=== PATIENT | female | born 1955 | race African-American/Black ===

== ENCOUNTER 2016-07-25 13:52 | Inpatient (IN) | payer MEDICAID, OTHER ==
[~2016-07-25] VITALS: Ht 170.2 cm; Wt 88.5 kg
[~2016-07-25 13:52] MED LIST: LASIX40 MG ORAL
--- NOTE | 2016-07-25 15:10 | Emergency Room Report ---
History of Present Illness General Chief Complaint: Pain Source: Patient (RUDOLPH DE LA CRUZ) Present Illness HPI 61 y/o female c/o left leg pain x 2 days. States her left upper thigh / leg is swollen and pain is located in left calf. Denies any trauma. States she tried walking on it and pain got worse. Pain is constant and has no relieving factors. States she has hx of DVT in the past and would like to r/o DVT today. Denies taking anticoagulation medication or hx of heart valve or a. fib. Denies any current n/v/f/c/d, abd pain, back pain, neck pain, photophobia, phonophobia, CP, SOB or headache. (RUDOLPH DE LA CRUZ) Allergies: Coded Allergies: No Known Allergies (Unverified , 02/24/14) Patient History Past Medical History: see triage record Pertinent Family History: none Immunizations: UTD Reviewed Nursing Documentation: PMH: Agreed, PSxH: Agreed (RUDOLPH DE LA CRUZ) Nursing Documentation-PMH Hx Cardiac Problems: Yes - Cardiac Failure Hx Hypertension: Yes Hx Cancer: No Hx Gastrointestinal Problems: No Hx Neurological Problems: No (RUDOLPH DE LA CRUZ) Review of Systems All Other Systems: negative except mentioned in HPI (RUDOLPH DE LA CRUZ) Physical Exam Vital Signs Date Time Temp Pulse Resp B/P Pulse Ox O2 Delivery O2 Flow Rate FiO2 07/25/16 13:57 99.0 125 20 158/92 97 Room Air Sp02 EP Interpretation: reviewed, normal General Appearance: no apparent distress, alert, GCS 15, non-toxic Head: normocephalic, atraumatic Respiratory: chest non-tender, lungs clear, normal breath sounds, speaking full sentences Cardiovascular #1: no edema, no murmur, no rub, tachycardia Cardiovascular #2: 2+ dorsalis pedis (R), 2+ dorsalis pedis (L) Musculoskeletal: back normal, gait/station normal, normal range of motion, non- tender, calf tenderness, swelling - Left thigh and ankle swollen Neurologic: alert, oriented x3, responsive, motor strength/tone normal, sensory intact, speech normal Psychiatric: judgement/insight normal, memory normal, mood/affect normal, no suicidal/homicidal ideation Skin: normal color, no rash, warm/dry, well hydrated (RUDOLPH DE LA CRUZ P.A.) Medical Decision Making PA Attestation Dr. Mirza is my supervising physician with whom patient management has been discussed with. (RUDOLPH DE LA CRUZ P.A.) Diagnostic Impression: Primary Impression: DVT (deep venous thrombosis) Qualified Codes: I82.492 - Acute embolism and thrombosis of other specified deep vein of left lower extremity ER Course Pt. presents to the ED c/o left leg pain Ddx considered but are not limited to DVT, contusion, fracture, venous insufficiency Vital signs: are WNL, pt. is afebrile H&PE are most consistent with DVT ORDERS: Venous duplex, Admission, PT/INR, PTT, CBC, CMP ED INTERVENTIONS: Lovonox Patient admitted to Dr. Granger. (RUDOLPH DE LA CRUZ P.A.) ER Course I evaluated this patient in the ED at [facility] with my advanced practice provider (Physician Material Stress Tester) colleague, who practices under my general supervision. My impressions concur with the advanced practice provider in regards to their obtained history of present illness, physical exam, general management, diagnosis, and disposition. In particular, I agree with PA-obtained interpretation of imaging, rhythm strip. For the evening and overnight shifts, we do not have the benefit of an in-house Radiologist to review xrays so our interpretation may be limited. Patients are to be discharged only with normal vital signs (or if we discussed a particular exception), a plan for follow-up care, and understand to return to the ED for worsening symptoms. Please see midlevel healthcare providers note for further details. (MARTIN MIRZA M.D.) EKG Diagnostic Results Rate: tachycardiac ST Segments: no acute changes (RUDOLPH DE LA CRUZ P.A.) Rhythm Strip Diag. Results Rhythm: no ectopy, other - Sinus Tach. Non specific ST changes (RUDOLPH DE LA CRUZ P.A.) CT/MRI/US Diagnostic Results CT/MRI/US Diagnostic Results : Imaging Test Ordered: Venous Duplex LLE Impression Large DVT of the left leg from proximal to distal (RUDOLPH DE LA CRUZ P.A.) Last Vital Signs Date Time Temp Pulse Resp B/P Pulse Ox O2 Delivery O2 Flow Rate FiO2 07/25/16 13:57 99.0 125 20 158/92 97 Room Air Status: unchanged (RUDOLPH DE LA CRUZ P.A.) Disposition: ADMITTED INPATIENT Admit Decision Time: 18:00 (RUDOLPH DE LA CRUZ.Lisha) Condition: Stable Signed Out To: Dr. Granger admission at 1800 (RUDOLPH DE LA CRUZ P.ANeville) RUDOLPH DE LA CRUZ Jul 25, 2016 15:10 MARTIN MIRZA M.D. Jul 28, 2016 14:18
[2016-07-25 15:31] VITALS: BP 153/94
[2016-07-25 16:40] LABS: BASOPHILS % (AUTO) 1.5 % (0.0-2.0); LYMPHOCYTES % (AUTO) 6.1 % (20.0-45.0); MEAN CORPUSCULAR HEMOGLOBIN 25.3 PG (27.0-31.0); MEAN CORPUSCULAR VOLUME 82 FL (80-99); MEAN PLATELET VOLUME 7.1 FL (6.5-10.1); MONOCYTES % (AUTO) 9.8 % (1.0-10.0); NEUTROPHILS % (AUTO) 82.6 % (45.0-75.0); PLATELET COUNT 247 K/UL (150-450); RED BLOOD COUNT 4.53 M/UL (4.20-5.40); RED CELL DISTRIBUTION WIDTH 14.6 % (11.6-14.8); WHITE BLOOD COUNT 13.7 K/UL (4.8-10.8)
[2016-07-25 16:51] LABS: INR 1.2 (0.9-1.1)
[2016-07-25 16:58] LABS: ALANINE AMINOTRANSFERASE 15 U/L (3-33); ALBUMIN/GLOBULIN RATIO 1.1 (1.0-2.7); ANION GAP 19 (5-15); ASPARTATE AMINO TRANSFERASE 18 U/L (5-40); CALCIUM 9.9 mg/dL (8.6-10.2); CARBON DIOXIDE 22 mEQ/L (20-30); CHLORIDE 95 mEQ/L (98-107); CREATININE 1.1 mg/dL (0.5-0.9); GLOMERULAR FILTRATION RATE > 60 mL/min (>60); HEMOLYSIS 0; POTASSIUM 4.2 mEQ/L (3.4-4.9); SODIUM 136 mEQ/L (135-145); TOTAL PROTEIN 7.4 g/dL (6.6-8.7)
[2016-07-25 17:56] VITALS: BP 105/94
[2016-07-25] MEDS ORDERED: Zolpidem 5mg tab ORAL PRN (20:00)
[2016-07-25] MEDS ORDERED: Morphine Sulfate 2mg/ml Inj IVP PRN (20:00)
[2016-07-25] MEDS ORDERED: LORazepam Inj 2mg/ml 1ml IV PRN (20:00)
[2016-07-25] MEDS ORDERED: Miralax 17gm pkt ORAL PRN (20:00)
[2016-07-25] MEDS ORDERED: Enoxaparin 100mg Inj SUBQ SCH (21:00)
[2016-07-25 21:43] VITALS: BP 130/77
[2016-07-25 23:52] VITALS: BP 128/73
[2016-07-26 04:00] VITALS: BP 131/87
[2016-07-26] MEDS: Heparin 25,000u/D5W 500ml 500 ML IV SCH ×3 (05:23→20:46)
[2016-07-26 06:57] LABS: ALBUMIN/GLOBULIN RATIO 1.1 (1.0-2.7); CALCIUM 9.7 mg/dL (8.6-10.2); CHOLESTEROL/HDL RATIO 2.6 (3.3-4.4); CREATININE 1.6 mg/dL (0.5-0.9); POTASSIUM 4.6 mEQ/L (3.4-4.9)
[2016-07-26 07:15] LABS: BASOPHILS % (AUTO) 0.5 % (0.0-2.0); EOSINOPHILS % (AUTO) 0.3 % (0.0-3.0); LYMPHOCYTES % (AUTO) 11.1 % (20.0-45.0); MEAN CORPUSCULAR HEMOGLOBIN 25.4 PG (27.0-31.0); MEAN CORPUSCULAR HGB CONC 31.4 G/DL (32.0-36.0); MEAN CORPUSCULAR VOLUME 81 FL (80-99); MEAN PLATELET VOLUME 8.2 FL (6.5-10.1); MONOCYTES % (AUTO) 12.2 % (1.0-10.0); NEUTROPHILS % (AUTO) 75.9 % (45.0-75.0); PLATELET COUNT 299 K/UL (150-450); RED BLOOD COUNT 4.39 M/UL (4.20-5.40); RED CELL DISTRIBUTION WIDTH 14.4 % (11.6-14.8); WHITE BLOOD COUNT 12.7 K/UL (4.8-10.8)
[2016-07-26 08:35] VITALS: BP 106/63
--- NOTE | 2016-07-26 10:24 | Diagnostic Imaging Report ---
APPROVED REPORT CPT Code: 92884 Present Symptoms LEFT LEG: Venous imaging reveals acute thrombus in the left common femoral, superficial femoral, popliteal and tibial segments. Greater saphenous vein also within normal limits. ER Doctor was notified of abnormal results at 1540 hours.
[2016-07-26 12:08] VITALS: BP 129/82
[2016-07-26] MEDS ORDERED: Heparin 5000 units/ml inj IV ONE ×2 (13:00→20:45)
--- NOTE | 2016-07-26 15:33 | History and Physical ---
History of Present Illness General Date patient seen: Jul 26, 2016 Reason for Hospitalization: Pain Present Illness HPI 61 year old female with hx of DVT presented to ER with CC of left leg pain x 2 days. States her left upper thigh / leg is swollen and pain is located in left calf. She had a venous doppler in ER showing that she has acute dvt Allergies: Coded Allergies: No Known Allergies (Unverified , 02/24/14) Medication History Scheduled Furosemide* (Lasix*), 40 MG ORAL BID, (Reported) Patient History Healthcare decision maker Resuscitation status Full Code Advanced Directive on File Past Medical/Surgical History Past Medical/Surgical History: (1) DVT (deep venous thrombosis) (2) Diabetes mellitus, new onset (3) GERD (gastroesophageal reflux disease) Review of Systems Hematologic/Lymphatic: Reports: no symptoms All Other Systems: negative except mentioned in HPI Physical Exam General Appearance: WD/WN, no apparent distress Lines, tubes and drains: peripheral HEENT: normocephalic, atraumatic Neck: non-tender, normal alignment Respiratory/Chest: chest wall non-tender, lungs clear Cardiovascular/Chest: normal peripheral pulses, normal rate Abdomen: normal bowel sounds, non tender Extremities: normal range of motion, non-tender 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: 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 political history II-XII grossly normal, no motor/sensory deficits Lymphatic: anterior cervical Last 24 Hour Vital Signs Date Time Temp Pulse Resp B/P Pulse Ox O2 Delivery O2 Flow Rate FiO2 07/26/16 12:08 98.1 103 20 129/82 98 Room Air 07/26/16 08:35 98.4 100 20 106/63 98 Room Air 07/26/16 04:00 98.2 105 18 131/87 94 Room Air 07/25/16 23:52 97.6 96 18 128/73 98 Room Air 07/25/16 21:43 97.7 95 16 130/77 98 Room Air 07/25/16 21:02 98.9 92 17 105/94 98 Room Air 07/25/16 17:56 98.9 92 17 105/94 98 Room Air 07/25/16 15:31 98.9 113 17 153/94 98 Room Air Intake and Output 07/25/16 07/26/16 19:00 07:00 Intake Total 31.842 ml Balance 31.842 ml IV Total 31.842 ml # Voids 1 # Bowel Movements 2 Laboratory Tests Test 07/25/16 16:34 07/26/16 05:10 07/26/16 11:30 White Blood Count 13.7 K/UL (4.8-10.8) H 12.7 K/UL (4.8-10.8) H Red Blood Count 4.53 M/UL (4.20-5.40) 4.39 M/UL (4.20-5.40) Hemoglobin 11.5 G/DL (12.0-16.0) L 11.2 G/DL (12.0-16.0) L Hematocrit 36.9 % (37.0-47.0) L 35.5 % (37.0-47.0) L Mean Corpuscular Volume 82 FL (80-99) 81 FL (80-99) Mean Corpuscular Hemoglobin 25.3 PG (27.0-31.0) L 25.4 PG (27.0-31.0) L Mean Corpuscular Hemoglobin Concent 31.0 G/DL (32.0-36.0) L 31.4 G/DL (32.0-36.0) L Red Cell Distribution Width 14.6 % (11.6-14.8) 14.4 % (11.6-14.8) Platelet Count 247 K/UL (150-450) 299 K/UL (150-450) Mean Platelet Volume 7.1 FL (6.5-10.1) 8.2 FL (6.5-10.1) Neutrophils (%) (Auto) 82.6 % (45.0-75.0) H 75.9 % (45.0-75.0) H Lymphocytes (%) (Auto) 6.1 % (20.0-45.0) L 11.1 % (20.0-45.0) L Monocytes (%) (Auto) 9.8 % (1.0-10.0) 12.2 % (1.0-10.0) H Eosinophils (%) (Auto) 0.0 % (0.0-3.0) 0.3 % (0.0-3.0) Basophils (%) (Auto) 1.5 % (0.0-2.0) 0.5 % (0.0-2.0) Prothrombin Time 12.0 SEC (9.30-11.50) H Prothromb Time International Ratio 1.2 (0.9-1.1) H Activated Partial Thromboplast Time 28 SEC (23-33) 31 SEC (23-33) Sodium Level 136 mEQ/L (135-145) 136 mEQ/L (135-145) Potassium Level 4.2 mEQ/L (3.4-4.9) 4.6 mEQ/L (3.4-4.9) Chloride Level 95 mEQ/L (98-107) L 93 mEQ/L (98-107) L Carbon Dioxide Level 22 mEQ/L (20-30) 24 mEQ/L (20-30) Anion Gap 19 (5-15) H 19 (5-15) H Blood Urea Nitrogen 9 mg/dL (7-23) 16 mg/dL (7-23) Creatinine 1.1 mg/dL (0.5-0.9) H 1.6 mg/dL (0.5-0.9) H Estimat Glomerular Filtration Rate > 60 mL/min (>60) 40.0 mL/min (>60) Glucose Level 175 mg/dL (74-106) H 132 mg/dL (74-106) H Calcium Level 9.9 mg/dL (8.6-10.2) 9.7 mg/dL (8.6-10.2) Total Bilirubin 0.8 mg/dL (0.0-1.2) 0.5 mg/dL (0.0-1.2) Aspartate Amino Transf (AST/SGOT) 18 U/L (5-40) 17 U/L (5-40) Alanine Aminotransferase (ALT/SGPT) 15 U/L (3-33) 14 U/L (3-33) Alkaline Phosphatase 69 U/L (35-104) 68 U/L (35-104) Total Protein 7.4 g/dL (6.6-8.7) 7.0 g/dL (6.6-8.7) Albumin 4.0 g/dL (3.5-5.2) 3.7 g/dL (3.5-5.2) Globulin 3.4 g/dL 3.3 g/dL Albumin/Globulin Ratio 1.1 (1.0-2.7) 1.1 (1.0-2.7) Triglycerides Level 93 mg/dL (< 150) Cholesterol Level 123 mg/dL (< 200) LDL Cholesterol 56 mg/dL (60-99) L HDL Cholesterol 48 mg/dL (> 60) Cholesterol/HDL Ratio 2.6 (3.3-4.4) L Height (Feet): 5 Height (Inches): 7.00 Weight (Pounds): 195 Medications Current Medications Medications (Trade) Dose Ordered Sig/Day Route PRN Reason Start Time Stop Time Status Last Admin Dose Admin Acetaminophen (Tylenol) 650 mg Q4H PRN ORAL fever 07/25/16 20:00 08/24/16 19:59 Al Hydroxide/Mg Hydroxide (Mylanta II) 30 ml Q6H PRN ORAL dyspepsia 07/25/16 20:00 08/24/16 19:59 Dextrose STAT PRN IV Hypoglycemia 07/25/16 20:00 08/24/16 19:59 Heparin Sodium/ Dextrose (Heparin) 500 ml @ 38.918 mls/ hr adjust per protocol IV 07/26/16 05:30 08/25/16 05:29 07/26/16 13:23 Lorazepam (Ativan 2mg/ml 1ml) 0.5 mg Q4H PRN IV For Anxiety 07/25/16 20:00 08/01/16 19:59 Morphine Sulfate (Morphine Sulfate) 1 mg Q4H PRN IVP For Pain 4-07/25/16 20:00 08/01/16 19:59 Ondansetron HCl (Zofran) 4 mg Q6H PRN IVP Nausea & Vomiting 07/25/16 20:00 08/24/16 19:59 Polyethylene Glycol (Miralax) 17 gm HSPRN PRN ORAL Constipation 07/25/16 20:00 08/24/16 19:59 Zolpidem Tartrate (Ambien) 5 mg HSPRN PRN ORAL Insomnia 07/25/16 20:00 08/24/16 19:59 Assessment/Plan Problem List: (1) Diabetes mellitus ICD Codes: E11.9 - Type 2 diabetes mellitus without complications SNOMED: 17755445 (2) DVT (deep venous thrombosis) ICD Codes: I82.409 - Acute embolism and thrombosis of unspecified deep veins of unspecified lower extremity SNOMED: 490736612 Qualifiers: Qualified Codes: I82.492 - Acute embolism and thrombosis of other specified deep vein of left lower extremity Assessment/Plan heparin IV coumadin hem evaluation DANYA RIVERA Jul 26, 2016 15:33
[2016-07-26 16:00] VITALS: BP 118/68
--- NOTE | 2016-07-26 17:19 | Consultation ---
Consult Note Consult Note Hematology Consultation Note Requesting MD: Rosetta Cabrera Reason for consultation: DVT DOS: 07/26/16 ID: 61 y/o female with a hx of left ventricle thrombus, as well as respiratory failure, has been extubated back in 2013, at this time presents to [facility] c/o left leg pain x 2 days. States her left upper thigh / leg is swollen and pain is located in left calf. Denies any trauma. States she tried walking on it and pain got worse. Pain is constant and has no relieving factors. States she has hx of DVT in the past a duplex showed a extensive dvt of the left lower extremity, given her Age >50 generally withhold hypercoag w/ u. She denies taking anticoagulation medication or hx of heart valve or a. fib. Denies any current n/v/f/c/d, abd pain, back pain, neck pain, photophobia, phonophobia, CP, SOB or headache. PMHX: HTN, CHF, as noted above Allergies: No Known Allergies (Unverified , 02/24/14) ROS: negative except as noted above PE: Vital Signs Date Time Temp Pulse Resp B/P Pulse Ox O2 Delivery O2 Flow Rate FiO2 07/26/16 13:57 99.0 125 20 158/92 97 Room Air General Appearance: NAD, A+O x3 Head: normocephalic, atraumatic Respiratory: chest non-tender, lungs clear, normal breath sounds Cardiovascular: no edema, no murmur, no rub, tachycardia Musculoskeletal: back normal, gait/station normal, normal range, swelling - Left thigh and ankle swollen Neurologic: alert, oriented x3, responsive Psychiatric: judgement/insight normal, memory normal Labs: Laboratory Tests Test 07/26/16 05:10 07/26/16 11:30 White Blood Count 12.7 K/UL (4.8-10.8) H Red Blood Count 4.39 M/UL (4.20-5.40) Hemoglobin 11.2 G/DL (12.0-16.0) L Hematocrit 35.5 % (37.0-47.0) L Mean Corpuscular Volume 81 FL (80-99) Mean Corpuscular Hemoglobin 25.4 PG (27.0-31.0) L Mean Corpuscular Hemoglobin Concent 31.4 G/DL (32.0-36.0) L Red Cell Distribution Width 14.4 % (11.6-14.8) Platelet Count 299 K/UL (150-450) Mean Platelet Volume 8.2 FL (6.5-10.1) Neutrophils (%) (Auto) 75.9 % (45.0-75.0) H Lymphocytes (%) (Auto) 11.1 % (20.0-45.0) L Monocytes (%) (Auto) 12.2 % (1.0-10.0) H Eosinophils (%) (Auto) 0.3 % (0.0-3.0) Basophils (%) (Auto) 0.5 % (0.0-2.0) Sodium Level 136 mEQ/L (135-145) Potassium Level 4.6 mEQ/L (3.4-4.9) Chloride Level 93 mEQ/L (98-107) L Carbon Dioxide Level 24 mEQ/L (20-30) Anion Gap 19 (5-15) H Blood Urea Nitrogen 16 mg/dL (7-23) Creatinine 1.6 mg/dL (0.5-0.9) H Estimat Glomerular Filtration Rate 40.0 mL/min (>60) Glucose Level 132 mg/dL (74-106) H Calcium Level 9.7 mg/dL (8.6-10.2) Total Bilirubin 0.5 mg/dL (0.0-1.2) Aspartate Amino Transf (AST/SGOT) 17 U/L (5-40) Alanine Aminotransferase (ALT/SGPT) 14 U/L (3-33) Alkaline Phosphatase 68 U/L (35-104) Total Protein 7.0 g/dL (6.6-8.7) Albumin 3.7 g/dL (3.5-5.2) Globulin 3.3 g/dL Albumin/Globulin Ratio 1.1 (1.0-2.7) Triglycerides Level 93 mg/dL (< 150) Cholesterol Level 123 mg/dL (< 200) LDL Cholesterol 56 mg/dL (60-99) L HDL Cholesterol 48 mg/dL (> 60) Cholesterol/HDL Ratio 2.6 (3.3-4.4) L Activated Partial Thromboplast Time 31 SEC (23-33) ASSESSMENT: # Acute thrombosis of common femoral and supericial femoral vein of left lower extremity - on heparin gtt and coumadin has been staretd # Anemia is 2/2 chronic disease # Leukocytosis is mild is likely 2/2 reactice process # Left leg pain 2/2 DVT # Coagulopathy 2/2 clot # Tachycardia - consistent with DVT RECS: - Agree with heparin gtt as well as 3-6 months of coumadin - Consider imaging with 2d echo, has a hx of left ventricular thrombus - Does not require a hypercoag w/u given patient's age, she is >50 - Anemia w/u has been reviewed, does not require iron - Monitor closely and councilced regarding potential for DVT - Appreciate consult! Will closely follow patient Bridger Robbins Jul 26, 2016 17:19
[2016-07-26 19:44] LABS: INR 1.1 (0.9-1.1); PROTHROMBIN TIME 10.8 SEC (9.30-11.50)
[2016-07-26 20:10] VITALS: BP 142/66
[2016-07-26] MEDS ORDERED: Warfarin Sodium 5mg ORAL ONE (21:00)
--- NOTE | 2016-07-26 23:09 | Cardiology Report ---
APPROVED REPORT EKG Measurement Heart [id number] Sinus tachycardia Possible Left atrial enlargement Left bundle branch block Abnormal ECG
--- NOTE | 2016-07-26 23:28 | Consultation ---
Consult Note Consult Note ID Dic # [id number] STEVENSON HADDAD M.D. Jul 26, 2016 23:28
[2016-07-27] VITALS: BP 125/72
[2016-07-27 04:00] VITALS: BP 124/69
[2016-07-27] MEDS: Heparin 25,000u/D5W 500ml 500 ML IV SCH ×2 (07:38→18:52)
[2016-07-27 07:50] VITALS: BP 110/61
--- NOTE | 2016-07-27 08:59 | Consultation ---
DATE OF CONSULTATION: 07/27/2016 REFERRING PHYSICIAN: Dr. Rosetta Cabrera. REASON FOR CONSULTATION: need for antibiotics. HISTORY OF PRESENT ILLNESS: The patient is a 61-year-old was admitted to this medical center for left lower extremity edema and tenderness. The patient was found to have leukocytosis and Infectious Disease consultation has been requested for further evaluation of the patient and antibiotic management. PAST MEDICAL HISTORY: Hypertension with congestive heart failure, history of DVT. ALLERGIES: No known drug allergies. SOCIAL HISTORY: No history of alcohol or drug abuse. FAMILY HISTORY: Noncontributory. REVIEW OF SYSTEMS: A 10-point review was done and except what is mentioned has been negative. PHYSICAL EXAMINATION: VITAL SIGNS: Temperature 99.1 degrees, pulse 86, respiratory rate 18, and blood pressure 142/69. HEENT: Mild pale conjunctivae. No icterus. CHEST: Coarse breathing sounds. HEART: S1 and S2. ABDOMEN: Soft. EXTREMITIES: Patient has mild tenderness over the left middle thigh. NEUROLOGIC: Awake. SKIN: No rash. LABORATORY AND DIAGNOSTIC DATA: , hemoglobin 11, and platelets 300,000. BUN 16, creatinine 1.6 and liver function test is unremarkable. Left lower extremity shows thrombosis of the left common femoral and superficial femoral veins. ASSESSMENT: 1. The patient is a 61-year-old female with multiple medical problems, who has been admitted with left lower extremity pain appears to be due to the left deep venous thrombosis. The patient has mild leukocytosis with no fever. 2. Based on the exam and physical there is no evidence of infection at this time. The patient's leukocytosis is mostly secondary to deep venous thrombosis. Plan, we will monitor patient off of antibiotics. We will send blood culture in the morning. 3. Monitor CBC and monitor BMP. 4. anticoagulation. Based on the patient's we will do further recommendations. Thank you, Dr. Cabrera for allowing me to take care of this patient. I will follow the patient with you during this hospitalization. Dave Caldwell M.D. : AUGIE/at JOB#: [id number] CC:
--- NOTE | 2016-07-27 09:48 | Infectious Diseases Prog Note ---
Assessment/Plan Assessment/Plan A: The patient is a 61-year-old F Afebrile Mild leukocytosis ( due to DVT ) no evidence of infection at this time Left lower extremity DVT HTN CHF P: Monitor pt off of AB Rx Monitor CBC Monitor BMP Monitor PT/PTT Subjective Constitutional: Denies: anorexia, chills, drenching sweats, fatigue, fever, no symptoms, other Allergies: Coded Allergies: No Known Allergies (Unverified , 02/24/14) Objective Vital Signs Last 24 Hour Vital Signs Date Time Temp Pulse Resp B/P Pulse Ox O2 Delivery O2 Flow Rate FiO2 07/27/16 07:50 97.6 89 20 110/61 99 Room Air 07/27/16 04:00 98.3 102 18 124/69 99 Room Air 07/27/16 01:21 99.1 07/27/16 00:00 99.1 106 18 125/72 99 Room Air 07/26/16 20:10 99.9 112 22 142/66 99 Room Air 07/26/16 16:00 98.8 94 22 118/68 97 Room Air 07/26/16 12:08 98.1 103 20 129/82 98 Room Air Height (Feet): 5 Height (Inches): 7.00 Weight (Pounds): 195 HEENT: anicteric Respiratory/Chest: no respiratory distress Cardiovascular: regularly irregular Abdomen: non distended Laboratory Tests Test 07/26/16 11:30 07/26/16 18:53 07/27/16 03:10 Activated Partial Thromboplast Time 31 SEC (23-33) 49 SEC (23-33) H 77 SEC (23-33) H Prothrombin Time 10.8 SEC (9.30-11.50) Prothromb Time International Ratio 1.1 (0.9-1.1) Current Medications Medications (Trade) Dose Ordered Sig/Day Route PRN Reason Start Time Stop Time Status Last Admin Dose Admin Acetaminophen (Tylenol) 650 mg Q4H PRN ORAL fever 07/25/16 20:00 08/24/16 19:59 07/27/16 00:22 Al Hydroxide/Mg Hydroxide (Mylanta II) 30 ml Q6H PRN ORAL dyspepsia 07/25/16 20:00 08/24/16 19:59 Dextrose STAT PRN IV Hypoglycemia 07/25/16 20:00 08/24/16 19:59 Heparin Sodium/ Dextrose (Heparin) 500 ml @ 45.995 mls/ hr adjust per protocol IV 07/26/16 05:30 08/25/16 05:29 07/27/16 07:38 Lorazepam (Ativan 2mg/ml 1ml) 0.5 mg Q4H PRN IV For Anxiety 07/25/16 20:00 08/01/16 19:59 Morphine Sulfate (Morphine Sulfate) 1 mg Q4H PRN IVP For Pain 07-3107/25/16 20:00 08/01/16 19:59 Ondansetron HCl (Zofran) 4 mg Q6H PRN IVP Nausea & Vomiting 07/25/16 20:00 08/24/16 19:59 Polyethylene Glycol (Miralax) 17 gm HSPRN PRN ORAL Constipation 07/25/16 20:00 08/24/16 19:59 Warfarin Sodium (Coumadin per pharmacy) 1 ea DAILY PRN MISC Per rx protocol 07/26/16 17:15 08/25/16 17:14 Zolpidem Tartrate (Ambien) 5 mg HSPRN PRN ORAL Insomnia 07/25/16 20:00 08/24/16 19:59 STEVENSON HADDAD M.D. Jul 27, 2016 09:48
[2016-07-27 09:53] LABS: BASOPHILS % (AUTO) 0.4 % (0.0-2.0); EOSINOPHILS % (AUTO) 0.6 % (0.0-3.0); LYMPHOCYTES % (AUTO) 16.3 % (20.0-45.0); MEAN CORPUSCULAR HEMOGLOBIN 24.7 PG (27.0-31.0); MEAN CORPUSCULAR HGB CONC 30.8 G/DL (32.0-36.0); MEAN CORPUSCULAR VOLUME 80 FL (80-99); MEAN PLATELET VOLUME 6.9 FL (6.5-10.1); MONOCYTES % (AUTO) 10.5 % (1.0-10.0); NEUTROPHILS % (AUTO) 72.2 % (45.0-75.0); PLATELET COUNT 294 K/UL (150-450); RED BLOOD COUNT 4.26 M/UL (4.20-5.40); RED CELL DISTRIBUTION WIDTH 14.7 % (11.6-14.8)
--- NOTE | 2016-07-27 09:59 | General Progress Note ---
Progress Note Progress Note [id number] full note dictated thanks WILLY MCCAULEY Jul 27, 2016 09:59
[2016-07-27 10:07] LABS: CHLORIDE 93 mEQ/L (98-107); POTASSIUM 3.8 mEQ/L (3.4-4.9); SODIUM 135 mEQ/L (135-145)
[2016-07-27 10:48] LABS: ANION GAP 23 (5-15); CARBON DIOXIDE 19 mEQ/L (20-30); GLOMERULAR FILTRATION RATE > 60 mL/min (>60); HEMOLYSIS 4
[2016-07-27 11:03] LABS: CALCIUM 9.5 mg/dL (8.6-10.2)
[2016-07-27 12:00] VITALS: BP 120/71
[2016-07-27 12:11] LABS: APPEARANCE,URINE SLIGHTLY CLOUDY; KETONES,URINE NEGATIVE (NEGATIVE); LEUKOCYTE ESTERASE ,URINE 3+ (NEGATIVE); NITRITE,URINE NEGATIVE (NEGATIVE); PH,URINE 5 (4.5-8.0); PROTEIN,URINE 2+ (NEGATIVE); UROBILINOGEN,URINE NORMAL MG/DL (0.0-1.0)
[2016-07-27 12:20] LABS: BACTERIA,URINE FEW /HPF; SQUAMOUS EPITHELIAL CELL,UR FEW /LPF (NONE/OCC); WBC,URINE 15-20 /HPF (0 - 2)
--- NOTE | 2016-07-27 14:48 | General Progress Note ---
Assessment/Plan Assessment/Plan ASSESSMENT: # Acute thrombosis of common femoral and supericial femoral vein of left lower extremity - on heparin gtt and coumadin to be continued # Anemia is 2/2 chronic disease # Leukocytosis is mild is likely 2/2 reactice process # Left leg pain 2/2 DVT # Coagulopathy 2/2 clot # Tachycardia - consistent with DVT RECS: - Agree with heparin gtt as well as 3-6 months of coumadin - Consider imaging with 2d echo, has a hx of left ventricular thrombus - Does not require a hypercoag w/u given patient's age, she is >50 - Anemia w/u has been reviewed, does not require iron - Monitor closely and counciled regarding potential for DVT - Appreciate consult! Will closely follow patient Subjective Constitutional: Reports: no symptoms HEENT: Reports: no symptoms Cardiovascular: Reports: no symptoms Respiratory: Reports: no symptoms Gastrointestinal/Abdominal: Reports: no symptoms Genitourinary: Reports: no symptoms Neurologic/Psychiatric: Reports: no symptoms Endocrine: Reports: no symptoms Hematologic/Lymphatic: Reports: anemia Allergies: Coded Allergies: No Known Allergies (Unverified , 02/24/14) Subjective stable, no events overnight, no fevers or chills, no night sweats Objective Last 24 Hour Vital Signs Date Time Temp Pulse Resp B/P Pulse Ox O2 Delivery O2 Flow Rate FiO2 07/27/16 12:00 98.2 98 18 120/71 98 07/27/16 07:50 97.6 89 20 110/61 99 Room Air 07/27/16 04:00 98.3 102 18 124/69 99 Room Air 07/27/16 01:21 99.1 07/27/16 00:00 99.1 106 18 125/72 99 Room Air 07/26/16 20:10 99.9 112 22 142/66 99 Room Air 07/26/16 16:00 98.8 94 22 118/68 97 Room Air Intake and Output 07/26/16 07/27/16 19:00 07:00 Intake Total 985.642 ml 1051.801 ml Balance 985.642 ml 1051.801 ml Intake Oral 600 ml 640 ml IV Total 385.642 ml 411.801 ml # Voids 3 Laboratory Tests 07/26/16 18:53: Prothrombin Time 10.8, Prothromb Time International Ratio 1.1, Activated Partial Thromboplast Time 49H 07/27/16 03:10: Activated Partial Thromboplast Time 77H, White Blood Count 10.0, Red Blood Count 4.26, Hemoglobin 10.5L, Hematocrit 34.2L, Mean Corpuscular Volume 80, Mean Corpuscular Hemoglobin 24.7L, Mean Corpuscular Hemoglobin Concent 30.8L, Red Cell Distribution Width 14.7, Platelet Count 294, Mean Platelet Volume 6.9, Neutrophils (%) (Auto) 72.2, Lymphocytes (%) (Auto) 16.3L, Monocytes (%) (Auto) 10.5H, Eosinophils (%) (Auto) 0.6, Basophils (%) (Auto) 0.4, Sodium Level 135, Potassium Level 3.8, Chloride Level 93L, Carbon Dioxide Level 19L, Anion Gap 23H , Blood Urea Nitrogen 15, Creatinine 1.0H, Estimat Glomerular Filtration Rate > 60, Glucose Level 136H, Calcium Level 9.5 07/27/16 11:50: Urine Color Pale yellow, Urine Appearance Slightly cloudy, Urine pH 5, Urine Specific [place] 1.015, Urine Protein 2+H, Urine Glucose (UA) Negative, Urine Ketones Negative, Urine Occult Blood 1+H, Urine Nitrite Negative, Urine Bilirubin Negative, Urine Urobilinogen Normal, Urine Leukocyte Esterase 3+H, Urine RBC 2-4H, Urine WBC 15-20H, Urine Squamous Epithelial Cells Few, Urine Bacteria Few, Urine Eosinophils None seen, Urine Random Creatinine [Pending], Urine Random Microalbumin [Pending], Urine Random Total Protein 32, Urine Random Sodium 10, Urine Creatinine 108.0, Urine Microalbumin/Creatinine Ratio [ Pending] Height (Feet): 5 Height (Inches): 7.00 Weight (Pounds): 195 General Appearance: no apparent distress EENT: PERRL/EOMI Neck: normal inspection Cardiovascular: normal rate Respiratory/Chest: chest wall non-tender Abdomen: non tender Extremities: non-tender Edema: 1+ Leg (L), 1+ Leg (R) Edema: mild edema Neurologic: no motor/sensory deficits Skin: warm/dry Bridger Robbins Jul 27, 2016 14:48
[2016-07-27 16:10] VITALS: BP 117/69
[2016-07-27] MEDS ORDERED: Warfarin Sodium 5mg ORAL ONE (18:00)
[2016-07-27 20:09] VITALS: BP 149/88
--- NOTE | 2016-07-27 20:58 | Consultation ---
DATE OF CONSULTATION: 07/27/2016 NEPHROLOGY CONSULTATION REFERRING PHYSICIAN: Rosetta Cabrera M.D. REASON FOR CONSULTATION: Acute renal failure. HISTORY OF PRESENT ILLNESS: The patient is a 61-year-old, female with past medical history significant for history of hypertension, history of ischemic cardiomyopathy, history of left acute thrombosis on the left ventricle, history of UT, history of hypertension, history of acute renal failure, basically was admitted about four years ago with a history of PE and DVT. She presented to and she on a normal basis she is receiving her treatment at [facility]. She presented to [facility] with complaint of severe left lower extremity pain and swelling. In the ER, the patient had a duplex ultrasound of the lower extremity. She was consequently admitted in the hospital. Upon admission, the creatinine was 1.1. Creatinine increased to 1.7. I was called for management of renal disease and electrolyte imbalance. PAST MEDICAL HISTORY: Basically, she has an extensive medical history including history of respiratory failure and required intubation in 2013, history of cardiomyopathy, history of congestive heart failure, history of acute thrombosis of the left ventricle, history of UT, history of hypertension, history of renal failure in the past. ALLERGIES: No known drug allergies. SOCIAL HISTORY: She lives at home. There is no history of tobacco, alcohol or drug use. She has two kids, the older is age of 30 and the second one age of 27. FAMILY HISTORY: Negative for any history of premature heart disease. REVIEW OF SYSTEMS: General: She complained of generalized weakness. Denied any fever, chills, or night sweats. Head And Neck: Denies any dysphagia, odynophagia, blurry vision, headache, or neck stiffness. Pulmonary: No shortness of breath. No cough or sputum. Cardiovascular: Denies any chest pain or palpitation. Gastrointestinal: She denies any nausea, vomiting, hematemesis or hematochezia. Genitourinary: Denies any dysuria, frequency, or hematuria. Musculoskeletal: She complained of generalized weakness and also complained of increased abdominal pain. PHYSICAL EXAMINATION: VITAL SIGNS: The patient has a temperature of 99 degrees, blood pressure of 142/66, heart rate of 112, and respiratory rate of 99. HEAD AND NECK: No JVP. No LAD. No thyromegaly. Extraocular movement intact. Pupils are reactive to light and accommodation. LUNGS: Decreased breathing sounds at both sides. ABDOMEN: Distended. Positive organomegaly EXTREMITIES: Mild edema and swelling of the left lower extremity, otherwise is negative. LABORATORY AND DIAGNOSTIC DATA: The patient has WBC count of 12.7, hemoglobin is 11.2, hematocrit of 35, and platelet count of 299,000. Chemistry reveals sodium of 136, potassium 4.6, chloride 93, bicarbonate 24, BUN of 15, creatinine of 1.6 and glucose of 132. Calcium of 9.7. There is no urinalysis. ASSESSMENT: 1. Acute renal failure. The etiology of acute renal failure including acute tubular necrosis due to unstable hemodynamics. 2. History of acute renal failure and possible chronic kidney disease. 3. History of cardiomyopathy. 4. Increased abdominal girth and organomegaly. 5. Recurrent full workup for hypercoagulable state. PLAN: To obtain a random urine, protein, creatinine ratio to calculate the proteinuria. Check the urine sodium and creatinine to calculate fractional excretion of sodium. Ultrasound of the kidney to evaluate the kidney size. I would recommend the patient to have an ultrasound of the abdomen for evaluation of abdominal distention. I would continue with current antihypertensive medication and possible echo if needed. I would like to thank, Dr. Cabrera, for allowing me to participate in the care of this patient. Naye Harris M.D. DR: ERIKA JOB#: [id number] CC:
--- NOTE | 2016-07-27 23:34 | Pulmonology Progress Note ---
Assessment/Plan Problems: (1) Diabetes mellitus (2) DVT (deep venous thrombosis) Assessment/Plan continue the same INR, ptt daily, pharmacy to adjust meds. Subjective Allergies: Coded Allergies: No Known Allergies (Unverified , 02/24/14) Objective Last 24 Hour Vital Signs Date Time Temp Pulse Resp B/P Pulse Ox O2 Delivery O2 Flow Rate FiO2 07/27/16 20:09 98.2 113 22 149/88 96 Room Air 07/27/16 16:10 98.2 91 20 117/69 95 Room Air 07/27/16 12:00 98.2 98 18 120/71 98 07/27/16 07:50 97.6 89 20 110/61 99 Room Air 07/27/16 04:00 98.3 102 18 124/69 99 Room Air 07/27/16 01:21 99.1 07/27/16 00:00 99.1 106 18 125/72 99 Room Air Intake and Output 07/26/16 07/27/16 19:00 07:00 Intake Total 985.642 ml 1051.801 ml Balance 985.642 ml 1051.801 ml Intake Oral 600 ml 640 ml IV Total 385.642 ml 411.801 ml # Voids 3 Objective General Appearance: WD/WN, no apparent distress Lines, tubes and drains: peripheral HEENT: normocephalic, atraumatic Neck: non-tender, normal alignment Respiratory/Chest: chest wall non-tender, lungs clear Cardiovascular/Chest: normal peripheral pulses, normal rate Abdomen: normal bowel sounds, non tender Extremities: normal range of motion, non-tender 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 II-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 grossly normal, no motor/sensory deficits Laboratory Tests 07/27/16 03:10: White Blood Count 10.0, Red Blood Count 4.26, Hemoglobin 10.5L, Hematocrit 34.2L , Mean Corpuscular Volume 80, Mean Corpuscular Hemoglobin 24.7L, Mean Corpuscular Hemoglobin Concent 30.8L, Red Cell Distribution Width 14.7, Platelet Count 294, Mean Platelet Volume 6.9, Neutrophils (%) (Auto) 72.2, Lymphocytes (%) (Auto) 16.3L, Monocytes (%) (Auto) 10.5H, Eosinophils (%) (Auto ) 0.6, Basophils (%) (Auto) 0.4, Activated Partial Thromboplast Time 77H, Sodium Level 135, Potassium Level 3.8, Chloride Level 93L, Carbon Dioxide Level 19L, Anion Gap 23H, Blood Urea Nitrogen 15, Creatinine 1.0H, Estimat Glomerular Filtration Rate > 60, Glucose Level 136H, Calcium Level 9.5 07/27/16 11:50: Urine Color Pale yellow, Urine Appearance Slightly cloudy, Urine pH 5, Urine Specific [place] 1.015, Urine Protein 2+H, Urine Glucose (UA) Negative, Urine Ketones Negative, Urine Occult Blood 1+H, Urine Nitrite Negative, Urine Bilirubin Negative, Urine Urobilinogen Normal, Urine Leukocyte Esterase 3+H, Urine RBC 2-4H, Urine WBC 15-20H, Urine Squamous Epithelial Cells Few, Urine Bacteria Few, Urine Eosinophils None seen, Urine Random Creatinine [Pending], Urine Random Microalbumin [Pending], Urine Random Total Protein 32, Urine Random Sodium 10, Urine Creatinine 108.0, Urine Microalbumin/Creatinine Ratio [ Pending] Current Medications Medications (Trade) Dose Ordered Sig/Day Route PRN Reason Start Time Stop Time Status Last Admin Dose Admin Acetaminophen (Tylenol) 650 mg Q4H PRN ORAL fever 07/25/16 20:00 08/24/16 19:59 07/27/16 00:22 Al Hydroxide/Mg Hydroxide (Mylanta II) 30 ml Q6H PRN ORAL dyspepsia 07/25/16 20:00 08/24/16 19:59 Dextrose STAT PRN IV Hypoglycemia 07/25/16 20:00 08/24/16 19:59 Heparin Sodium/ Dextrose (Heparin) 500 ml @ 45.995 mls/ hr adjust per protocol IV 07/26/16 05:30 08/25/16 05:29 07/27/16 18:52 Lorazepam (Ativan 2mg/ml 1ml) 0.5 mg Q4H PRN IV For Anxiety 07/25/16 20:00 08/01/16 19:59 Morphine Sulfate (Morphine Sulfate) 1 mg Q4H PRN IVP For Pain 4-10 07/25/16 20:00 08/01/16 19:59 Ondansetron HCl (Zofran) 4 mg Q6H PRN IVP Nausea & Vomiting 07/25/16 20:00 08/24/16 19:59 Polyethylene Glycol (Miralax) 17 gm HSPRN PRN ORAL Constipation 07/25/16 20:00 08/24/16 19:59 Warfarin Sodium (Coumadin per pharmacy) 1 ea DAILY PRN MISC Per rx protocol 07/26/16 17:15 08/25/16 17:14 Zolpidem Tartrate (Ambien) 5 mg HSPRN PRN ORAL Insomnia 07/25/16 20:00 08/24/16 19:59 DANYA RIVERA Jul 27, 2016 23:34
[2016-07-28] VITALS: BP 138/78
[2016-07-28 04:00] VITALS: BP_SYST 108; BP_SYST 147; BP_DIAS 52; BP_DIAS 73
[2016-07-28 05:04] LABS: BASOPHILS % (AUTO) 0.6 % (0.0-2.0); EOSINOPHILS % (AUTO) 0.9 % (0.0-3.0); LYMPHOCYTES % (AUTO) 16.2 % (20.0-45.0); MEAN CORPUSCULAR HEMOGLOBIN 25.6 PG (27.0-31.0); MEAN CORPUSCULAR HGB CONC 32.1 G/DL (32.0-36.0); MEAN CORPUSCULAR VOLUME 80 FL (80-99); MONOCYTES % (AUTO) 12.8 % (1.0-10.0); NEUTROPHILS % (AUTO) 69.5 % (45.0-75.0); PLATELET COUNT 341 K/UL (150-450); RED BLOOD COUNT 4.06 M/UL (4.20-5.40); RED CELL DISTRIBUTION WIDTH 14.8 % (11.6-14.8); WHITE BLOOD COUNT 10.2 K/UL (4.8-10.8)
[2016-07-28 05:23] LABS: INR 1.1 (0.9-1.1); PROTHROMBIN TIME 11.1 SEC (9.30-11.50)
[2016-07-28] MEDS ORDERED: Heparin 5000 units/ml inj IV ONE ×2 (06:00→13:15)
[2016-07-28] MEDS: Heparin 25,000u/D5W 500ml 500 ML IV SCH ×3 (06:01→17:35)
[2016-07-28 08:23] VITALS: BP 147/98
--- NOTE | 2016-07-28 08:33 | General Progress Note ---
Assessment/Plan Assessment/Plan ASSESSMENT: # Acute thrombosis of common femoral and supericial femoral vein of left lower extremity - on both heparin gtt and coumadin to be continued # Anemia is 2/2 chronic disease # Leukocytosis is mild is likely 2/2 reactice process # Left leg pain 2/2 DVT # Coagulopathy 2/2 clot # Tachycardia - consistent with DVT RECS: - Agree with heparin gtt as well as 3-6 months of coumadin - Consider imaging with 2d echo, has a hx of left ventricular thrombus - Does not require a hypercoag w/u given patient's age, she is >50 - Anemia w/u has been reviewed, does not require iron - Monitor closely and counciled regarding potential for DVT - Appreciate consult! Continue followup Subjective Constitutional: Reports: no symptoms HEENT: Reports: no symptoms Cardiovascular: Reports: no symptoms Respiratory: Reports: no symptoms Gastrointestinal/Abdominal: Reports: no symptoms Genitourinary: Reports: no symptoms Neurologic/Psychiatric: Reports: no symptoms Endocrine: Reports: no symptoms Hematologic/Lymphatic: Reports: anemia Allergies: Coded Allergies: No Known Allergies (Unverified , 02/24/14) Subjective stable, no events overnight, no fevers or chills, no night sweats Objective Last 24 Hour Vital Signs Date Time Temp Pulse Resp B/P Pulse Ox O2 Delivery O2 Flow Rate FiO2 07/28/16 08:23 97.7 100 16 147/98 99 Room Air 07/28/16 04:00 97.9 75 21 108/52 100 Room Air 07/28/16 04:00 97.9 85 19 147/73 93 Room Air 07/28/16 02:20 98.2 07/28/16 00:00 99.5 110 20 138/78 99 Room Air 07/27/16 20:09 98.2 113 22 149/88 96 Room Air 07/27/16 16:10 98.2 91 20 117/69 95 Room Air 07/27/16 12:00 98.2 98 18 120/71 98 Intake and Output 07/27/16 07/28/16 19:00 07:00 Intake Total 983.950 ml 773.955 ml Balance 983.950 ml 773.955 ml Intake Oral 500 ml 360 ml IV Total 483.950 ml 413.955 ml # Voids 6 2 Laboratory Tests 07/27/16 11:50: Urine Color Pale yellow, Urine Appearance Slightly cloudy, Urine pH 5, Urine Specific [place] 1.015, Urine Protein 2+H, Urine Glucose (UA) Negative, Urine Ketones Negative, Urine Occult Blood 1+H, Urine Nitrite Negative, Urine Bilirubin Negative, Urine Urobilinogen Normal, Urine Leukocyte Esterase 3+H, Urine RBC 2-4H, Urine WBC 15-20H, Urine Squamous Epithelial Cells Few, Urine Bacteria Few, Urine Eosinophils None seen, Urine Random Creatinine [Pending], Urine Random Microalbumin [Pending], Urine Random Total Protein 32, Urine Random Sodium 10, Urine Creatinine 108.0, Urine Microalbumin/Creatinine Ratio [ Pending] 07/28/16 05:00: White Blood Count 10.2, Red Blood Count 4.06L, Hemoglobin 10.4L, Hematocrit 32.4L, Mean Corpuscular Volume 80, Mean Corpuscular Hemoglobin 25.6L, Mean Corpuscular Hemoglobin Concent 32.1, Red Cell Distribution Width 14.8, Platelet Count 341, Mean Platelet Volume 7.0, Neutrophils (%) (Auto) 69.5, Lymphocytes (% ) (Auto) 16.2L, Monocytes (%) (Auto) 12.8H, Eosinophils (%) (Auto) 0.9, Basophils (%) (Auto) 0.6, Prothrombin Time 11.1, Prothromb Time International Ratio 1.1, Activated Partial Thromboplast Time 63H Height (Feet): 5 Height (Inches): 7.00 Weight (Pounds): 195 General Appearance: no apparent distress EENT: TMs normal Neck: normal inspection Cardiovascular: no JVD Respiratory/Chest: normal breath sounds Abdomen: normal bowel sounds Genitourinary/Rectal: heme negative stool Extremities: normal inspection Edema: 1+ Leg (L), 1+ Leg (R) Neurologic: alert Bridger Robbins Jul 28, 2016 08:33
--- NOTE | 2016-07-28 10:01 | Nephrology Progress Note ---
Assessment/Plan Assessment 1. Acute renal failure. The etiology of acute renal failure including acute tubular necrosis due to unstable hemodynamics. 2. History of acute renal failure and possible chronic kidney disease. 3. History of cardiomyopathy. 4. Increased abdominal girth Plan plan to continue current meds fallow up us of abdomen replace electrolyte as need it avoid NSAID Subjective Constitutional: Reports: no symptoms HEENT: Reports: no symptoms Genitourinary: Reports: no symptoms Neurologic/Psychiatric: Reports: no symptoms Subjective alert and awake feeling better on heparin drip Objective Objective Last 24 Hour Vital Signs Date Time Temp Pulse Resp B/P Pulse Ox O2 Delivery O2 Flow Rate FiO2 07/28/16 08:23 97.7 100 16 147/98 99 Room Air 07/28/16 04:00 97.9 75 21 108/52 100 Room Air 07/28/16 04:00 97.9 85 19 147/73 93 Room Air 07/28/16 02:20 98.2 07/28/16 00:00 99.5 110 20 138/78 99 Room Air 07/27/16 20:09 98.2 113 22 149/88 96 Room Air 07/27/16 16:10 98.2 91 20 117/69 95 Room Air 07/27/16 12:00 98.2 98 18 120/71 98 Intake and Output 07/27/16 07/28/16 19:00 07:00 Intake Total 983.950 ml 773.955 ml Balance 983.950 ml 773.955 ml Intake Oral 500 ml 360 ml IV Total 483.950 ml 413.955 ml # Voids 6 2 Laboratory Tests 07/27/16 11:50: Urine Color Pale yellow, Urine Appearance Slightly cloudy, Urine pH 5, Urine Specific [place] 1.015, Urine Protein 2+H, Urine Glucose (UA) Negative, Urine Ketones Negative, Urine Occult Blood 1+H, Urine Nitrite Negative, Urine Bilirubin Negative, Urine Urobilinogen Normal, Urine Leukocyte Esterase 3+H, Urine RBC 2-4H, Urine WBC 15-20H, Urine Squamous Epithelial Cells Few, Urine Bacteria Few, Urine Eosinophils None seen, Urine Random Creatinine [Pending], Urine Random Microalbumin [Pending], Urine Random Total Protein 32, Urine Random Sodium 10, Urine Creatinine 108.0, Urine Microalbumin/Creatinine Ratio [ Pending] 4/7/17 05:00: White Blood Count 10.2, Red Blood Count 4.06L, Hemoglobin 10.4L, Hematocrit 32.4L, Mean Corpuscular Volume 80, Mean Corpuscular Hemoglobin 25.6L, Mean Corpuscular Hemoglobin Concent 32.1, Red Cell Distribution Width 14.8, Platelet Count 341, Mean Platelet Volume 7.0, Neutrophils (%) (Auto) 69.5, Lymphocytes (% ) (Auto) 16.2L, Monocytes (%) (Auto) 12.8H, Eosinophils (%) (Auto) 0.9, Basophils (%) (Auto) 0.6, Prothrombin Time 11.1, Prothromb Time International Ratio 1.1, Activated Partial Thromboplast Time 63H Height (Feet): 5 Height (Inches): 7.00 Weight (Pounds): 195 Objective HEAD AND NECK: No JVP. No LAD. No thyromegaly. Extraocular movement intact. Pupils are reactive to light and accommodation. LUNGS: Decreased breathing sounds at both sides. ABDOMEN: Distended. Positive organomegaly EXTREMITIES: Mild edema and swelling of the left lower extremity, otherwise is negative. WILLY MCCAULEY Jul 28, 2016 10:01
--- NOTE | 2016-07-28 10:34 | Diagnostic Imaging Report ---
Indication: Abdominal distention Technique: Meza-scale and duplex images of the upper abdomen were obtained Comparison: None Findings: . Gallbladder demonstrates gallstones. No gallbladder wall thickening nor pericholecystic fluid. Sonographic Snowden's sign is negative. Common bile duct measures 5 mm in diameter. No intrahepatic biliary ductal dilatation. Liver demonstrates normal echogenicity, no focal abnormality. Portal vein and hepatic veins are patent.. Pancreas is incompletely visualized due to overlying bowel gas, visualized portions are unremarkable. Spleen is unremarkable. Left kidney measures 10.1 cm in length. Right kidney measures 10.7 cm length. Both kidneys demonstrate normal echogenicity. There is mild bilateral hydronephrosis. The bladder is mildly distended. Technologist reports patient was unable to void.. No focal abnormality. The uterus is enlarged, measures 21 x 14 cm, and contains a large dominant fibroid measuring 18 x 15 cm.. Non-aneurysmal abdominal aorta. Impression: Cholelithiasis. Negative for dilated ducts Enlarged fibroid uterus. Bilateral mild hydronephrosis, likely but not definitively due to the above. Consider CT for better characterization if clinically indicated Note inability to visualize portions of the pancreas
[2016-07-28 11:25] VITALS: BP 122/66
[2016-07-28 13:14] LABS: CREATININE RANDOM URINE 96.5 mg/dL (Not Estab.); MICROALBUMIN/CREATININE RATIO 67.2 mg/g creat (0.0-30.0)
[2016-07-28 16:00] VITALS: BP 139/79
[2016-07-28] MEDS ORDERED: Warfarin Sodium 7.5mg ORAL ONE (17:00)
[2016-07-28 20:00] VITALS: BP 129/80
--- NOTE | 2016-07-28 20:43 | Pulmonology Progress Note ---
Assessment/Plan Problems: (1) Diabetes mellitus (2) DVT (deep venous thrombosis) Assessment/Plan continue the same all reviewd check inr on heparin drip Subjective ROS Limited/Unobtainable: No Allergies: Coded Allergies: No Known Allergies (Unverified , 02/24/14) Objective Last 24 Hour Vital Signs Date Time Temp Pulse Resp B/P Pulse Ox O2 Delivery O2 Flow Rate FiO2 07/28/16 16:00 97.9 97 20 139/79 98 Room Air 07/28/16 11:25 99.1 85 15 122/66 99 Room Air 07/28/16 08:23 97.7 100 16 147/98 99 Room Air 07/28/16 04:00 97.9 75 21 108/52 100 Room Air 07/28/16 04:00 97.9 85 19 147/73 93 Room Air 07/28/16 02:20 98.2 07/28/16 00:00 99.5 110 20 138/78 99 Room Air Intake and Output 07/27/16 07/28/16 19:00 07:00 Intake Total 983.950 ml 773.955 ml Balance 983.950 ml 773.955 ml Intake Oral 500 ml 360 ml IV Total 483.950 ml 413.955 ml # Voids 6 2 Objective General Appearance: WD/WN, no apparent distress Lines, tubes and drains: peripheral HEENT: normocephalic, atraumatic Neck: non-tender, normal alignment Respiratory/Chest: chest wall non-tender, lungs clear Cardiovascular/Chest: normal peripheral pulses, normal rate Abdomen: normal bowel sounds, non tender Extremities: normal range of motion, non-tender 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 II-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 grossly normal, no motor/sensory deficits Microbiology Date/Time Source Procedure Growth Status 07/27/16 03:10 Blood Blood Culture - Preliminary NO GROWTH AFTER 24 HOURS Resulted 07/27/16 03:00 Blood Blood Culture - Preliminary NO GROWTH AFTER 24 HOURS Resulted 07/27/16 11:50 Urine,Clean Catch Urine Culture - Preliminary Resulted Laboratory Tests 07/28/16 05:00: White Blood Count 10.2, Red Blood Count 4.06L, Hemoglobin 10.4L, Hematocrit 32.4L, Mean Corpuscular Volume 80, Mean Corpuscular Hemoglobin 25.6L, Mean Corpuscular Hemoglobin Concent 32.1, Red Cell Distribution Width 14.8, Platelet Count 341, Mean Platelet Volume 7.0, Neutrophils (%) (Auto) 69.5, Lymphocytes (% ) (Auto) 16.2L, Monocytes (%) (Auto) 12.8H, Eosinophils (%) (Auto) 0.9, Basophils (%) (Auto) 0.6, Prothrombin Time 11.1, Prothromb Time International Ratio 1.1, Activated Partial Thromboplast Time 63H 07/28/16 12:05: Activated Partial Thromboplast Time 57H 07/28/16 19:00: Activated Partial Thromboplast Time 78H Current Medications Medications (Trade) Dose Ordered Sig/Day Route PRN Reason Start Time Stop Time Status Last Admin Dose Admin Acetaminophen (Tylenol) 650 mg Q4H PRN ORAL fever 07/25/16 20:00 08/24/16 19:59 07/28/16 20:17 Al Hydroxide/Mg Hydroxide (Mylanta II) 30 ml Q6H PRN ORAL dyspepsia 07/25/16 20:00 08/24/16 19:59 Dextrose (Dextrose 50%) STAT PRN IV Hypoglycemia 07/25/16 20:00 08/24/16 19:59 Heparin Sodium/ Dextrose (Heparin) 500 ml @ 53.071 mls/ hr adjust per protocol IV 07/28/16 05:48 08/25/16 05:29 07/28/16 17:35 Lorazepam (Ativan 2mg/ml 1ml) 0.5 mg Q4H PRN IV For Anxiety 07/25/16 20:00 08/01/16 19:59 Morphine Sulfate (Morphine Sulfate) 1 mg Q4H PRN IVP For Pain 4-07/25/16 20:00 08/01/16 19:59 Ondansetron HCl (Zofran) 4 mg Q6H PRN IVP Nausea & Vomiting 07/25/16 20:00 08/24/16 19:59 Polyethylene Glycol (Miralax) 17 gm HSPRN PRN ORAL Constipation 07/25/16 20:00 08/24/16 19:59 Warfarin Sodium 1 ea 1 ea DAILY PRN MISC Per rx protocol 07/26/16 17:15 08/25/16 17:14 Zolpidem Tartrate (Ambien) 5 mg HSPRN PRN ORAL Insomnia 07/25/16 20:00 08/24/16 19:59 DANYA RIVERA Jul 28, 2016 20:43
[2016-07-28] MEDS ORDERED: guaiFENesin DM 100mg/5ml ORAL PRN (21:00)
[2016-07-29 00:59] VITALS: BP 126/71
[2016-07-29] MEDS: Heparin 25,000u/D5W 500ml 500 ML IV SCH ×2 (03:27→13:24)
[2016-07-29 04:00] VITALS: BP 131/74
[2016-07-29 04:46] LABS: INR 1.2 (0.9-1.1)
[2016-07-29 08:16] VITALS: BP 145/84
--- NOTE | 2016-07-29 10:55 | Infectious Diseases Prog Note ---
Assessment/Plan Assessment/Plan A: The patient is a 61-year-old F Afebrile Mild leukocytosis , SP ( due to DVT ) no evidence of infection at this time UCx: GNR mixes ( contaminant ) US: Cholelithiasis. Negative for dilated ducts Left lower extremity DVT HTN CHF P: Monitor pt off of AB Rx Monitor CBC Monitor BMP Monitor PT/PTT Subjective Constitutional: Denies: anorexia, chills, drenching sweats, fatigue, fever, no symptoms, other Allergies: Coded Allergies: No Known Allergies (Unverified , 02/24/14) Objective Vital Signs Last 24 Hour Vital Signs Date Time Temp Pulse Resp B/P Pulse Ox O2 Delivery O2 Flow Rate FiO2 07/29/16 08:16 98.2 104 20 145/84 95 Room Air 07/29/16 04:00 97.3 96 19 131/74 100 Room Air 07/29/16 00:59 98.6 83 19 126/71 99 Room Air 07/28/16 21:16 98.1 07/28/16 20:00 97.5 96 18 129/80 98 Room Air 07/28/16 16:00 97.9 97 20 139/79 98 Room Air 07/28/16 11:25 99.1 85 15 122/66 99 Room Air Height (Feet): 5 Height (Inches): 7.00 Weight (Pounds): 195 HEENT: atraumatic Respiratory/Chest: normal breath sounds Cardiovascular: regularly irregular Abdomen: no organomegaly Microbiology Date/Time Source Procedure Growth Status 07/27/16 03:10 Blood Blood Culture - Preliminary NO GROWTH AFTER 48 HOURS Resulted 07/27/16 03:00 Blood Blood Culture - Preliminary NO GROWTH AFTER 48 HOURS Resulted 07/27/16 11:50 Urine,Clean Catch Urine Culture - Final Mixed Urogenital Contaminants Complete Laboratory Tests Test 07/28/16 12:05 07/28/16 19:00 07/29/16 04:00 Activated Partial Thromboplast Time 57 SEC (23-33) H 78 SEC (23-33) H 79 SEC (23-33) H Prothrombin Time 12.0 SEC (9.30-11.50) H Prothromb Time International Ratio 1.2 (0.9-1.1) H Current Medications Medications (Trade) Dose Ordered Sig/Day Route PRN Reason Start Time Stop Time Status Last Admin Dose Admin Acetaminophen (Tylenol) 650 mg Q4H PRN ORAL fever 07/25/16 20:00 08/24/16 19:59 07/28/16 20:17 Al Hydroxide/Mg Hydroxide (Mylanta II) 30 ml Q6H PRN ORAL dyspepsia 07/25/16 20:00 08/24/16 19:59 Dextrose (Dextrose 50%) STAT PRN IV Hypoglycemia 07/25/16 20:00 08/24/16 19:59 Guaifenesin/ Dextromethorphan (Robitussin DM) 10 ml Q4H PRN ORAL For Cough 07/28/16 21:00 08/27/16 20:59 Heparin Sodium/ Dextrose (Heparin) 500 ml @ 53.071 mls/ hr adjust per protocol IV 07/28/16 05:48 08/25/16 05:29 07/29/16 03:27 Lorazepam (Ativan 2mg/ml 1ml) 0.5 mg Q4H PRN IV For Anxiety 07/25/16 20:00 08/01/16 19:59 Morphine Sulfate (Morphine Sulfate) 1 mg Q4H PRN IVP For Pain 4-07/25/16 20:00 08/01/16 19:59 Ondansetron HCl (Zofran) 4 mg Q6H PRN IVP Nausea & Vomiting 07/25/16 20:00 08/24/16 19:59 Polyethylene Glycol (Miralax) 17 gm HSPRN PRN ORAL Constipation 07/25/16 20:00 08/24/16 19:59 Warfarin Sodium (Coumadin) 7.5 mg COUMADIN ONCE ORAL 07/29/16 17:00 07/29/16 17:01 Warfarin Sodium 1 ea 1 ea DAILY PRN MISC Per rx protocol 07/26/16 17:15 08/25/16 17:14 Zolpidem Tartrate (Ambien) 5 mg HSPRN PRN ORAL Insomnia 07/25/16 20:00 08/24/16 19:59 STEVENSON HADDAD M.D. Jul 29, 2016 10:55
[2016-07-29 11:44] VITALS: BP 145/80
[2016-07-29] MEDS: Mylanta II UD 30ml ORAL PRN (13:19)
[2016-07-29 16:00] VITALS: BP 115/72
[2016-07-29] MEDS ORDERED: Warfarin Sodium 7.5mg ORAL ONE (17:00)
[2016-07-29 20:00] VITALS: BP 126/73
--- NOTE | 2016-07-29 20:54 | General Progress Note ---
Assessment/Plan Assessment/Plan Assessment/Plan Assessment/Plan Assessment/Plan ASSESSMENT: # Acute thrombosis of common femoral and supericial femoral vein of left lower extremity - on both heparin gtt and coumadin to be continued # Anemia is 2/2 chronic disease # Leukocytosis is mild is likely 2/2 reactice process # Left leg pain 2/2 DVT # Coagulopathy 2/2 clot # Tachycardia - consistent with DVT RECS: - Agree with heparin gtt as well as 3-6 months of coumadin - Consider imaging with 2d echo, has a hx of left ventricular thrombus - Does not require a hypercoag w/u given patient's age, she is >52 - Anemia w/u has been reviewed, does not require iron - Monitor closely and counciled regarding potential for DVT - Appreciate consult! Continue followup Renuka Robbins M.D. Subjective Constitutional: Reports: no symptoms HEENT: Reports: no symptoms Cardiovascular: Reports: no symptoms Respiratory: Reports: no symptoms Gastrointestinal/Abdominal: Reports: no symptoms Genitourinary: Reports: no symptoms Neurologic/Psychiatric: Reports: no symptoms Endocrine: Reports: no symptoms Hematologic/Lymphatic: Reports: no symptoms Allergies: Coded Allergies: No Known Allergies (Unverified , 02/24/14) Objective Last 24 Hour Vital Signs Date Time Temp Pulse Resp B/P Pulse Ox O2 Delivery O2 Flow Rate FiO2 07/29/16 20:00 98.4 94 22 126/73 97 Room Air 07/29/16 16:00 98.2 98 20 115/72 97 Room Air 07/29/16 11:44 98.0 95 22 145/80 97 Room Air 07/29/16 08:16 98.2 104 20 145/84 95 Room Air 07/29/16 04:00 97.3 96 19 131/74 100 Room Air 07/29/16 00:59 98.6 83 19 126/71 99 Room Air 07/28/16 21:16 98.1 Intake and Output 07/28/16 07/29/16 19:00 07:00 Intake Total 2199.802 ml 877.997 ml Output Total 800 ml Balance 1399.802 ml 877.997 ml Intake Oral 1800 ml 480 ml IV Total 399.802 ml 397.997 ml Output Urine Total 800 ml # Voids 1 2 Laboratory Tests 07/29/16 04:00: Prothrombin Time 12.0H, Prothromb Time International Ratio 1.2H, Activated Partial Thromboplast Time 79H Height (Feet): 5 Height (Inches): 7.00 Weight (Pounds): 195 General Appearance: no apparent distress EENT: normal ENT inspection Neck: normal alignment Cardiovascular: normal rate Respiratory/Chest: no respiratory distress Abdomen: soft Genitourinary/Rectal: normal rectal exam Extremities: non-tender Edema: no edema noted Arm (L), no edema noted Arm (R), no edema noted Leg (L), no edema noted Leg (R), no edema noted Pedal (L), no edema noted Pedal (R), no edema noted Generalized Edema: mild edema Neurologic: alert Skin: warm/dry Lymphatic: normal anterior cervical (L), normal anterior cervical (R), normal axillary (L), normal axillary (R), normal inguinal (L), normal inguinal (R), normal other, normal posterior cervical (L), normal posterior cervical (R), normal submandibular (L), normal submandibular (R), normal supraclavicular (L), normal supraclavicular (R) RENUKA ROBBINS Jul 29, 2016 20:54
--- NOTE | 2016-07-29 23:29 | Pulmonology Progress Note ---
Assessment/Plan Problems: (1) Diabetes mellitus (2) DVT (deep venous thrombosis) Assessment/Plan continue heparin and coumadin check inr Subjective Allergies: Coded Allergies: No Known Allergies (Unverified , 02/24/14) Objective Last 24 Hour Vital Signs Date Time Temp Pulse Resp B/P Pulse Ox O2 Delivery O2 Flow Rate FiO2 07/29/16 20:00 98.4 94 22 126/73 97 Room Air 07/29/16 16:00 98.2 98 20 115/72 97 Room Air 07/29/16 11:44 98.0 95 22 145/80 97 Room Air 07/29/16 08:16 98.2 104 20 145/84 95 Room Air 07/29/16 04:00 97.3 96 19 131/74 100 Room Air 07/29/16 00:59 98.6 83 19 126/71 99 Room Air Intake and Output 07/28/16 07/29/16 19:00 07:00 Intake Total 2199.802 ml 877.997 ml Output Total 800 ml Balance 1399.802 ml 877.997 ml Intake Oral 1800 ml 480 ml IV Total 399.802 ml 397.997 ml Output Urine Total 800 ml # Voids 1 2 Objective General Appearance: WD/WN, no apparent distress Lines, tubes and drains: peripheral HEENT: normocephalic, atraumatic Neck: non-tender, normal alignment Respiratory/Chest: chest wall non-tender, lungs clear Cardiovascular/Chest: normal peripheral pulses, normal rate Abdomen: normal bowel sounds, non tender Extremities: normal range of motion, non-tender 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, no motor/sensory deficits Microbiology Date/Time Source Procedure Growth Status 07/27/16 03:10 Blood Blood Culture - Preliminary NO GROWTH AFTER 48 HOURS Resulted 07/27/16 03:00 Blood Blood Culture - Preliminary NO GROWTH AFTER 48 HOURS Resulted 07/27/16 11:50 Urine,Clean Catch Urine Culture - Final Mixed Urogenital Contaminants Complete Laboratory Tests 07/29/16 04:00: Prothrombin Time 12.0H, Prothromb Time International Ratio 1.2H, Activated Partial Thromboplast Time 79H Current Medications Medications (Trade) Dose Ordered Sig/Day Route PRN Reason Start Time Stop Time Status Last Admin Dose Admin Acetaminophen (Tylenol) 650 mg Q4H PRN ORAL fever 07/25/16 20:00 5/4/17 19:59 07/28/16 20:17 Al Hydroxide/Mg Hydroxide (Mylanta II) 30 ml Q6H PRN ORAL dyspepsia 07/25/16 20:00 08/24/16 19:59 07/29/16 13:19 Dextrose (Dextrose 50%) STAT PRN IV Hypoglycemia 07/25/16 20:00 08/24/16 19:59 Guaifenesin/ Dextromethorphan (Robitussin DM) 10 ml Q4H PRN ORAL For Cough 07/28/16 21:00 08/27/16 20:59 Heparin Sodium/ Dextrose (Heparin) 500 ml @ 53.071 mls/ hr adjust per protocol IV 07/28/16 05:48 08/25/16 05:29 07/29/16 13:24 Lorazepam (Ativan 2mg/ml 1ml) 0.5 mg Q4H PRN IV For Anxiety 07/25/16 20:00 08/01/16 19:59 Morphine Sulfate (Morphine Sulfate) 1 mg Q4H PRN IVP For Pain 4-07/25/16 20:00 08/01/16 19:59 Ondansetron HCl (Zofran) 4 mg Q6H PRN IVP Nausea & Vomiting 07/25/16 20:00 08/24/16 19:59 Polyethylene Glycol (Miralax) 17 gm HSPRN PRN ORAL Constipation 07/25/16 20:00 08/24/16 19:59 Warfarin Sodium 1 ea 1 ea DAILY PRN MISC Per rx protocol 07/26/16 17:15 08/25/16 17:14 Zolpidem Tartrate (Ambien) 5 mg HSPRN PRN ORAL Insomnia 07/25/16 20:00 08/24/16 19:59 DANYA RIVERA Jul 29, 2016 23:29
[2016-07-30] VITALS: BP 135/77
[2016-07-30 04:00] VITALS: BP 156/91
[2016-07-30 04:45] LABS: INR 1.4 (0.9-1.1); PROTHROMBIN TIME 14.5 SEC (9.30-11.50)
[2016-07-30] MEDS: Heparin 25,000u/D5W 500ml 500 ML IV SCH ×4 (05:15→18:39)
[2016-07-30 07:45] VITALS: BP 127/83
--- NOTE | 2016-07-30 09:15 | Infectious Diseases Prog Note ---
Assessment/Plan Assessment/Plan A: Leukocytosis resolved DVT of left leg HPN Cholelithiasis anemia P; observe off antibiotic Subjective ROS Limited/Unobtainable: No Constitutional: Reports: no symptoms Respiratory: Reports: no symptoms Cardiovascular: Reports: no symptoms Gastrointestinal/Abdominal: Reports: no symptoms Genitourinary: Reports: no symptoms Musculoskeletal: Reports: other - in left leg , pain Allergies: Coded Allergies: No Known Allergies (Unverified , 02/24/14) Objective Vital Signs Last 24 Hour Vital Signs Date Time Temp Pulse Resp B/P Pulse Ox O2 Delivery O2 Flow Rate FiO2 07/30/16 07:45 98.2 89 18 127/83 97 Room Air 07/30/16 04:00 98.1 103 22 156/91 98 Room Air 07/30/16 00:00 99.5 97 22 135/77 96 Room Air 07/29/16 20:00 98.4 94 22 126/73 97 Room Air 07/29/16 16:00 98.2 98 20 115/72 97 Room Air 07/29/16 11:44 98.0 95 22 145/80 97 Room Air Height (Feet): 5 Height (Inches): 7.00 Weight (Pounds): 195 General Appearance: no acute distress HEENT: mucous membranes moist Respiratory/Chest: lungs clear Cardiovascular: normal rate Abdomen: soft, non tender Extremities: no edema Neurologic/Psychiatric: alert, oriented x 3, responsive Microbiology Date/Time Source Procedure Growth Status 07/27/16 11:50 Urine,Clean Catch Urine Culture - Final Mixed Urogenital Contaminants Complete Laboratory Tests Test 07/30/16 04:10 Prothrombin Time 14.5 SEC (9.30-11.50) H Prothromb Time International Ratio 1.4 (0.9-1.1) H Activated Partial Thromboplast Time 102 SEC (23-33) H Current Medications Medications (Trade) Dose Ordered Sig/Day Route PRN Reason Start Time Stop Time Status Last Admin Dose Admin Acetaminophen (Tylenol) 650 mg Q4H PRN ORAL fever 07/25/16 20:00 08/24/16 19:59 07/28/16 20:17 Al Hydroxide/Mg Hydroxide (Mylanta II) 30 ml Q6H PRN ORAL dyspepsia 07/25/16 20:00 08/24/16 19:59 07/29/16 13:19 Dextrose (Dextrose 50%) STAT PRN IV Hypoglycemia 07/25/16 20:00 08/24/16 19:59 Guaifenesin/ Dextromethorphan 10 ml 10 ml Q4H PRN ORAL For Cough 07/28/16 21:00 08/27/16 20:59 Heparin Sodium/ Dextrose (Heparin) 500 ml @ 49.533 mls/ hr adjust per protocol IV 07/30/16 05:04 08/25/16 05:29 07/30/16 05:15 Lorazepam (Ativan 2mg/ml 1ml) 0.5 mg Q4H PRN IV For Anxiety 07/25/16 20:00 08/01/16 19:59 Morphine Sulfate (Morphine Sulfate) 1 mg Q4H PRN IVP For Pain 07-3107/25/16 20:00 08/01/16 19:59 Ondansetron HCl (Zofran) 4 mg Q6H PRN IVP Nausea & Vomiting 07/25/16 20:00 08/24/16 19:59 Polyethylene Glycol (Miralax) 17 gm HSPRN PRN ORAL Constipation 07/25/16 20:00 08/24/16 19:59 Warfarin Sodium (Coumadin per pharmacy) 1 ea DAILY PRN MISC Per rx protocol 07/26/16 17:15 08/25/16 17:14 Zolpidem Tartrate (Ambien) 5 mg HSPRN PRN ORAL Insomnia 07/25/16 20:00 08/24/16 19:59 RONEN NIEVES Jul 30, 2016 09:15
[2016-07-30] MEDS ORDERED: Heparin 5000 units/ml inj IV ONE (10:45)
[2016-07-30 11:55] VITALS: BP 131/79
--- NOTE | 2016-07-30 15:56 | General Progress Note ---
Assessment/Plan Assessment/Plan ASSESSMENT: # Acute thrombosis of common femoral and supericial femoral vein of left lower extremity - on both heparin gtt and coumadin to be continued # Anemia is 2/2 chronic disease # Leukocytosis is mild is likely 2/2 reactice process # Left leg pain 2/2 DVT # Coagulopathy 2/2 clot # Tachycardia - consistent with DVT RECS: - Agree with heparin gtt as well as 3-6 months of coumadin - INR goal is 2-3, will monitor closely - Consider imaging with 2d echo, has a hx of left ventricular thrombus - Does not require a hypercoag w/u given patient's age, she is >52 - Anemia w/u has been reviewed, does not require iron - Monitor closely and counciled regarding potential for DVT - Appreciate consult! Continue followup Subjective Constitutional: Reports: no symptoms HEENT: Reports: no symptoms Cardiovascular: Reports: no symptoms Respiratory: Reports: no symptoms Gastrointestinal/Abdominal: Reports: poor appetite Genitourinary: Reports: no symptoms Neurologic/Psychiatric: Reports: no symptoms Endocrine: Reports: no symptoms Hematologic/Lymphatic: Reports: anemia Allergies: Coded Allergies: No Known Allergies (Unverified , 02/24/14) Subjective stable, no events overnight, no fevers or chills, no night sweats reported Objective Last 24 Hour Vital Signs Date Time Temp Pulse Resp B/P Pulse Ox O2 Delivery O2 Flow Rate FiO2 07/30/16 11:55 96.6 92 16 131/79 99 Room Air 07/30/16 07:45 98.2 89 18 127/83 97 Room Air 07/30/16 04:00 98.1 103 22 156/91 98 Room Air 07/30/16 00:00 99.5 97 22 135/77 96 Room Air 07/29/16 20:00 98.4 94 22 126/73 97 Room Air 07/29/16 16:00 98.2 98 20 115/72 97 Room Air Intake and Output 07/29/16 07/30/16 19:00 07:00 Intake Total 1243.781 ml 621.817 ml Output Total 300 ml Balance 943.781 ml 621.817 ml Intake Oral 660 ml 360 ml IV Total 583.781 ml 261.817 ml Output Urine Total 300 ml # Voids 3 2 Laboratory Tests 07/30/16 04:10: Prothrombin Time 14.5H, Prothromb Time International Ratio 1.4H, Activated Partial Thromboplast Time 102H 07/30/16 09:50: Activated Partial Thromboplast Time 61H Height (Feet): 5 Height (Inches): 7.00 Weight (Pounds): 195 General Appearance: no apparent distress EENT: normal ENT inspection Neck: normal alignment Cardiovascular: regular rhythm Respiratory/Chest: lungs clear Abdomen: non tender Extremities: non-tender Edema: 1+ Leg (L), 1+ Leg (R) Edema: mild edema Neurologic: alert Skin: warm/dry Bridger Robbins Jul 30, 2016 15:56
[2016-07-30 16:00] VITALS: BP 120/74
[2016-07-30] MEDS ORDERED: Warfarin Sod 5 MG, Warfarin Sod 4 MG ORAL ONE ×2 (17:00)
--- NOTE | 2016-07-30 19:16 | Pulmonology Progress Note ---
Assessment/Plan Problems: (1) Diabetes mellitus (2) DVT (deep venous thrombosis) Subjective Allergies: Coded Allergies: No Known Allergies (Unverified , 02/24/14) Objective Last 24 Hour Vital Signs Date Time Temp Pulse Resp B/P Pulse Ox O2 Delivery O2 Flow Rate FiO2 07/30/16 16:00 97.5 91 18 120/74 96 Room Air 07/30/16 11:55 96.6 92 16 131/79 99 Room Air 07/30/16 07:45 98.2 89 18 127/83 97 Room Air 07/30/16 04:00 98.1 103 22 156/91 98 Room Air 07/30/16 00:00 99.5 97 22 135/77 96 Room Air 07/29/16 20:00 98.4 94 22 126/73 97 Room Air Intake and Output 07/29/16 07/30/16 19:00 07:00 Intake Total 1243.781 ml 621.817 ml Output Total 300 ml Balance 943.781 ml 621.817 ml Intake Oral 660 ml 360 ml IV Total 583.781 ml 261.817 ml Output Urine Total 300 ml # Voids 3 2 Laboratory Tests 07/30/16 04:10: Prothrombin Time 14.5H, Prothromb Time International Ratio 1.4H, Activated Partial Thromboplast Time 102H 07/30/16 09:50: Activated Partial Thromboplast Time 61H 07/30/16 17:00: Activated Partial Thromboplast Time 115H Current Medications Medications (Trade) Dose Ordered Sig/Day Route PRN Reason Start Time Stop Time Status Last Admin Dose Admin Acetaminophen (Tylenol) 650 mg Q4H PRN ORAL fever 07/25/16 20:00 08/24/16 19:59 07/28/16 20:17 Al Hydroxide/Mg Hydroxide (Mylanta II) 30 ml Q6H PRN ORAL dyspepsia 07/25/16 20:00 08/24/16 19:59 07/29/16 13:19 Dextrose (Dextrose 50%) STAT PRN IV Hypoglycemia 07/25/16 20:00 08/24/16 19:59 Guaifenesin/ Dextromethorphan 10 ml 10 ml Q4H PRN ORAL For Cough 07/28/16 21:00 08/27/16 20:59 Heparin Sodium/ Dextrose (Heparin) 500 ml @ 47.764 mls/ hr adjust per protocol IV 07/30/16 05:04 08/25/16 05:29 07/30/16 18:39 Lorazepam (Ativan 2mg/ml 1ml) 0.5 mg Q4H PRN IV For Anxiety 07/25/16 20:00 08/01/16 19:59 Morphine Sulfate (Morphine Sulfate) 1 mg Q4H PRN IVP For Pain 4-07/25/16 20:00 08/01/16 19:59 Ondansetron HCl (Zofran) 4 mg Q6H PRN IVP Nausea & Vomiting 07/25/16 20:00 08/24/16 19:59 Polyethylene Glycol (Miralax) 17 gm HSPRN PRN ORAL Constipation 07/25/16 20:00 08/24/16 19:59 Warfarin Sodium (Coumadin per pharmacy) 1 ea DAILY PRN MISC Per rx protocol 07/26/16 17:15 08/25/16 17:14 Zolpidem Tartrate (Ambien) 5 mg HSPRN PRN ORAL Insomnia 07/25/16 20:00 08/24/16 19:59 DANYA RIVERA Jul 30, 2016 19:16
[2016-07-30 20:00] VITALS: BP 119/58
[2016-07-30] MEDS: Mylanta II UD 30ml ORAL PRN (23:50)
[2016-07-31] VITALS: BP 156/84
[2016-07-31 00:40] LABS: INR 1.6 (0.9-1.1)
[2016-07-31] MEDS: Heparin 25,000u/D5W 500ml 500 ML IV SCH ×4 (01:13→16:08)
[2016-07-31] MEDS ORDERED: Heparin 5000 units/ml inj IV ONE (01:15)
[2016-07-31 03:50] VITALS: BP 130/75
[2016-07-31 08:00] VITALS: BP 139/70
[2016-07-31] MEDS ORDERED: NS 275ml ONE (08:37)
--- NOTE | 2016-07-31 10:06 | Infectious Diseases Prog Note ---
Assessment/Plan Assessment/Plan A: The patient is a 61-year-old F Afebrile Mild leukocytosis , SP ( due to DVT ) no evidence of infection at this time UCx: GNR mixes ( contaminant ) US: Cholelithiasis. Negative for dilated ducts Left lower extremity DVT HTN CHF P: Monitor pt off of AB Rx Monitor CBC Monitor BMP Monitor PT/PTT Subjective Constitutional: Denies: anorexia, chills, drenching sweats, fatigue, fever, no symptoms, other Allergies: Coded Allergies: No Known Allergies (Unverified , 02/24/14) Objective Vital Signs Last 24 Hour Vital Signs Date Time Temp Pulse Resp B/P Pulse Ox O2 Delivery O2 Flow Rate FiO2 07/31/16 03:50 98.2 104 20 130/75 98 Room Air 07/31/16 00:00 98.1 101 20 156/84 98 Room Air 07/30/16 20:00 97.5 91 20 119/58 91 Room Air 07/30/16 16:00 97.5 91 18 120/74 96 Room Air 07/30/16 11:55 96.6 92 16 131/79 99 Room Air Height (Feet): 5 Height (Inches): 7.00 Weight (Pounds): 195 HEENT: atraumatic Respiratory/Chest: normal breath sounds Cardiovascular: normal rate Abdomen: soft, non tender Laboratory Tests Test 07/30/16 17:00 07/31/16 00:15 07/31/16 08:30 Activated Partial Thromboplast Time 115 SEC (23-33) H 64 SEC (23-33) H 101 SEC (23-33) H Prothrombin Time 17.0 SEC (9.30-11.50) H Prothromb Time International Ratio 1.6 (0.9-1.1) H Current Medications Medications (Trade) Dose Ordered Sig/Day Route PRN Reason Start Time Stop Time Status Last Admin Dose Admin Acetaminophen (Tylenol) 650 mg Q4H PRN ORAL fever 07/25/16 20:00 08/24/16 19:59 07/28/16 20:17 Al Hydroxide/Mg Hydroxide (Mylanta II) 30 ml Q6H PRN ORAL dyspepsia 07/25/16 20:00 08/24/16 19:59 07/30/16 23:50 Dextrose (Dextrose 50%) STAT PRN IV Hypoglycemia 07/25/16 20:00 08/24/16 19:59 Guaifenesin/ Dextromethorphan 10 ml 10 ml Q4H PRN ORAL For Cough 07/28/16 21:00 08/27/16 20:59 Heparin Sodium/ Dextrose (Heparin) 500 ml @ 47.764 mls/ hr adjust per protocol IV 07/31/16 09:30 08/30/16 09:29 07/31/16 09:16 Lorazepam (Ativan 2mg/ml 1ml) 0.5 mg Q4H PRN IV For Anxiety 07/25/16 20:00 08/01/16 19:59 Morphine Sulfate (Morphine Sulfate) 1 mg Q4H PRN IVP For Pain 07-3107/25/16 20:00 08/01/16 19:59 Ondansetron HCl (Zofran) 4 mg Q6H PRN IVP Nausea & Vomiting 07/25/16 20:00 08/24/16 19:59 Polyethylene Glycol (Miralax) 17 gm HSPRN PRN ORAL Constipation 07/25/16 20:00 08/24/16 19:59 Warfarin Sodium (Coumadin per pharmacy) 1 ea DAILY PRN MISC Per rx protocol 07/26/16 17:15 08/25/16 17:14 Zolpidem Tartrate (Ambien) 5 mg HSPRN PRN ORAL Insomnia 07/25/16 20:00 08/24/16 19:59 STEVENSON HADDAD M.D. Jul 31, 2016 10:06
[2016-07-31 12:00] VITALS: BP 124/69
[2016-07-31 16:00] VITALS: BP 144/72
[2016-07-31] MEDS ORDERED: Warfarin Sod 5 MG, Warfarin Sod 4 MG ORAL ONE ×2 (17:00)
--- NOTE | 2016-07-31 17:20 | General Progress Note ---
Assessment/Plan Assessment/Plan ASSESSMENT: # Acute thrombosis of common femoral and supericial femoral vein of left lower extremity - on both heparin gtt and coumadin to be continued # Anemia is 2/2 chronic disease # Leukocytosis is mild is likely 2/2 reactice process # Left leg pain 2/2 DVT # Coagulopathy 2/2 clot # Tachycardia - consistent with DVT RECS: - Agree with heparin gtt as well as 3-6 months of coumadin anticoagulation - INR goal is 2-3, will monitor closely - Consider imaging with 2d echo, has a hx of left ventricular thrombus - Does not require a hypercoag w/u given patient's age, she is >50 - Anemia w/u has been reviewed, does not require iron - Monitor closely and counciled regarding potential for DVT - Appreciate consult! Continue followup Subjective Constitutional: Reports: no symptoms HEENT: Reports: no symptoms Cardiovascular: Reports: no symptoms Respiratory: Reports: no symptoms Gastrointestinal/Abdominal: Reports: poor appetite Genitourinary: Reports: no symptoms Neurologic/Psychiatric: Reports: no symptoms Endocrine: Reports: no symptoms Hematologic/Lymphatic: Reports: anemia Allergies: Coded Allergies: No Known Allergies (Unverified , 02/24/14) Subjective stable, no events overnight, no fevers or chills, no night sweats Objective Last 24 Hour Vital Signs Date Time Temp Pulse Resp B/P Pulse Ox O2 Delivery O2 Flow Rate FiO2 07/31/16 16:00 98.1 93 20 144/72 93 Room Air 07/31/16 12:00 98.2 77 18 124/69 77 Room Air 07/31/16 08:00 98.1 92 18 139/70 97 Room Air 07/31/16 03:50 98.2 104 20 130/75 98 Room Air 07/31/16 00:00 98.1 101 20 156/84 98 Room Air 07/30/16 20:00 97.5 91 20 119/58 91 Room Air Intake and Output 07/30/16 07/31/16 19:00 07:00 Intake Total 707.0258 ml 102.604 ml Balance 707.0258 ml 102.604 ml Intake Oral 240 ml IV Total 467.0258 ml 102.604 ml # Voids 2 Laboratory Tests 07/31/16 00:15: Prothrombin Time 17.0H, Prothromb Time International Ratio 1.6H, Activated Partial Thromboplast Time 64H 07/31/16 08:30: Activated Partial Thromboplast Time 101H 07/31/16 15:30: Activated Partial Thromboplast Time 93H Height (Feet): 5 Height (Inches): 7.00 Weight (Pounds): 195 General Appearance: no apparent distress EENT: TMs normal Neck: supple Cardiovascular: regular rhythm Respiratory/Chest: normal breath sounds Abdomen: normal bowel sounds Genitourinary/Rectal: heme negative stool Edema: 1+ Leg (L), 1+ Leg (R) Edema: mild edema Neurologic: alert Skin: warm/dry Bridger Robbins Jul 31, 2016 17:20
--- NOTE | 2016-07-31 19:47 | Pulmonology Progress Note ---
Assessment/Plan Problems: (1) Diabetes mellitus (2) DVT (deep venous thrombosis) Assessment/Plan IV heparin coumadin Subjective ROS Limited/Unobtainable: No Allergies: Coded Allergies: No Known Allergies (Unverified , 02/24/14) Objective Last 24 Hour Vital Signs Date Time Temp Pulse Resp B/P Pulse Ox O2 Delivery O2 Flow Rate FiO2 07/31/16 16:00 98.1 93 20 144/72 93 Room Air 07/31/16 12:00 98.2 77 18 124/69 77 Room Air 07/31/16 08:00 98.1 92 18 139/70 97 Room Air 07/31/16 03:50 98.2 104 20 130/75 98 Room Air 07/31/16 00:00 98.1 101 20 156/84 98 Room Air 07/30/16 20:00 97.5 91 20 119/58 91 Room Air Intake and Output 07/30/16 07/31/16 19:00 07:00 Intake Total 707.0258 ml 102.604 ml Balance 707.0258 ml 102.604 ml Intake Oral 240 ml IV Total 467.0258 ml 102.604 ml # Voids 2 Objective General Appearance: WD/WN, no apparent distress Lines, tubes and drains: peripheral HEENT: normocephalic, atraumatic Neck: non-tender, normal alignment Respiratory/Chest: chest wall non-tender, lungs clear Cardiovascular/Chest: normal peripheral pulses, normal rate Abdomen: normal bowel sounds, non tender Extremities: normal range of motion, non-tender 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, no motor/sensory deficits Laboratory Tests 07/31/16 00:15: Prothrombin Time 17.0H, Prothromb Time International Ratio 1.6H, Activated Partial Thromboplast Time 64H 07/31/16 08:30: Activated Partial Thromboplast Time 101H 07/31/16 15:30: Activated Partial Thromboplast Time 93H Current Medications Medications (Trade) Dose Ordered Sig/Day Route PRN Reason Start Time Stop Time Status Last Admin Dose Admin Acetaminophen (Tylenol) 650 mg Q4H PRN ORAL fever 07/25/16 20:00 08/24/16 19:59 07/28/16 20:17 Al Hydroxide/Mg Hydroxide (Mylanta II) 30 ml Q6H PRN ORAL dyspepsia 07/25/16 20:00 08/24/16 19:59 07/30/16 23:50 Dextrose (Dextrose 50%) STAT PRN IV Hypoglycemia 07/25/16 20:00 08/24/16 19:59 Guaifenesin/ Dextromethorphan 10 ml 10 ml Q4H PRN ORAL For Cough 07/28/16 21:00 08/27/16 20:59 Heparin Sodium/ Dextrose (Heparin) 500 ml @ 47.764 mls/ hr adjust per protocol IV 07/31/16 09:30 08/30/16 09:29 07/31/16 16:08 Lorazepam (Ativan 2mg/ml 1ml) 0.5 mg Q4H PRN IV For Anxiety 07/25/16 20:00 08/01/16 19:59 Morphine Sulfate (Morphine Sulfate) 1 mg Q4H PRN IVP For Pain 07-3107/25/16 20:00 08/01/16 19:59 Ondansetron HCl (Zofran) 4 mg Q6H PRN IVP Nausea & Vomiting 07/25/16 20:00 08/24/16 19:59 Polyethylene Glycol (Miralax) 17 gm HSPRN PRN ORAL Constipation 07/25/16 20:00 08/24/16 19:59 Warfarin Sodium (Coumadin per pharmacy) 1 ea DAILY PRN MISC Per rx protocol 07/26/16 17:15 08/25/16 17:14 Zolpidem Tartrate (Ambien) 5 mg HSPRN PRN ORAL Insomnia 07/25/16 20:00 08/24/16 19:59 DANYA RIVERA Jul 31, 2016 19:47
[2016-07-31 20:00] VITALS: BP 135/73
--- NOTE | 2016-07-31 23:48 | Consultation ---
DATE OF CONSULTATION: CONSULTING PHYSICIAN: Silvana Jimenez M.D. ATTENDING PHYSICIAN: Rosetta Cabrera M.D. CHIEF COMPLAINT: Irritation and moisture of the pannus. HISTORY OF PRESENT ILLNESS: This is a 61-year-old woman, who has a history of a DVT, who was admitted on 07/26/2016, admitted for a DVT. The patient has been here in the hospital and has been treated for her DVT. However, the patient does complain of excessive sweating and irritation in the pannus. PAST MEDICAL HISTORY: 1. DVT. 2. Diabetes. 3. Reflux. MEDICATIONS: Outpatient medications, Lasix. Current medications are Coumadin, heparin, Tylenol, morphine, lorazepam, and Zofran. ALLERGIES: No known drug allergies. PHYSICAL EXAMINATION: GENERAL: The patient is alert and oriented and in no acute distress. CARDIOVASCULAR: Regular rate and rhythm. LUNGS: Clear to auscultation bilaterally. EXTREMITIES: Good range of motion. I inspected all areas, where she has skin folds including her inframammary fold and also her pannus. She did have some hyperpigmentation, a little bit of moisture in the pannus area, but no erythema or redness and no evidence of any fungal infection. ASSESSMENT: The patient with excess pannus with discomfort and sweating. RECOMMENDATIONS: Recommend that the patient keep the area clean and dry and cleanse with normal saline and pat dry. For any moisture and irritation, recommend zinc oxide t.i.d. and p.r.n. Also if the patient's medical condition allows her to have elective surgery, consider panniculectomy or abdominoplasty. Silvana Jimenez M.D. DR: JULIETA JOB#: [id number] CC: BERNA
[2016-08-01] VITALS: BP 132/78
[2016-08-01] MEDS: Heparin 25,000u/D5W 500ml 500 ML IV SCH (02:57)
[2016-08-01] MEDS: Mylanta II UD 30ml ORAL PRN (03:01)
[2016-08-01 04:55] LABS: INR 2.3 (0.9-1.1); PROTHROMBIN TIME 23.9 SEC (9.30-11.50)
[2016-08-01] MEDS ORDERED: Heparin 25,000u/D5W 500ml 500 ML IV SCH (06:30)
[2016-08-01 08:00] VITALS: BP 140/83
--- NOTE | 2016-08-01 09:18 | Infectious Diseases Prog Note ---
Assessment/Plan Assessment/Plan A: The patient is a 61-year-old F Afebrile Mild leukocytosis , SP ( due to DVT ) no evidence of infection at this time UCx: GNR mixes ( contaminant ) US: Cholelithiasis. Negative for dilated ducts Left lower extremity DVT HTN CHF P: Monitor pt off of AB Rx Monitor CBC Monitor BMP Monitor PT/PTT Subjective Constitutional: Denies: anorexia, chills, drenching sweats, fatigue, fever, no symptoms, other Allergies: Coded Allergies: No Known Allergies (Unverified , 02/24/14) Objective Vital Signs Last 24 Hour Vital Signs Date Time Temp Pulse Resp B/P Pulse Ox O2 Delivery O2 Flow Rate FiO2 08/01/16 08:00 97.7 88 18 140/83 96 Room Air 08/01/16 00:00 97.8 82 16 132/78 96 Room Air 07/31/16 20:00 97.9 88 19 135/73 95 Room Air 07/31/16 16:00 98.1 93 20 144/72 93 Room Air 07/31/16 12:00 98.2 77 18 124/69 77 Room Air Height (Feet): 5 Height (Inches): 7.00 Weight (Pounds): 195 HEENT: atraumatic Respiratory/Chest: lungs clear Cardiovascular: normal rate Abdomen: no organomegaly Laboratory Tests Test 07/31/16 15:30 08/01/16 04:00 Activated Partial Thromboplast Time 93 SEC (23-33) H 142 SEC (23-33) H Prothrombin Time 23.9 SEC (9.30-11.50) H Prothromb Time International Ratio 2.3 (0.9-1.1) H Current Medications Medications (Trade) Dose Ordered Sig/Day Route PRN Reason Start Time Stop Time Status Last Admin Dose Admin Acetaminophen (Tylenol) 650 mg Q4H PRN ORAL fever 07/25/16 20:00 08/24/16 19:59 07/28/16 20:17 Al Hydroxide/Mg Hydroxide (Mylanta II) 30 ml Q6H PRN ORAL dyspepsia 07/25/16 20:00 08/24/16 19:59 08/01/16 03:01 Dextrose (Dextrose 50%) STAT PRN IV Hypoglycemia 07/25/16 20:00 08/24/16 19:59 Guaifenesin/ Dextromethorphan 10 ml 10 ml Q4H PRN ORAL For Cough 07/28/16 21:00 08/27/16 20:59 Heparin Sodium/ Dextrose (Heparin) 500 ml @ 42.456 mls/ hr adjust per protocol IV 08/01/16 06:30 08/31/16 06:29 Lorazepam (Ativan 2mg/ml 1ml) 0.5 mg Q4H PRN IV For Anxiety 07/25/16 20:00 08/01/16 19:59 Morphine Sulfate (Morphine Sulfate) 1 mg Q4H PRN IVP For Pain -07/25/16 20:00 08/01/16 19:59 Ondansetron HCl (Zofran) 4 mg Q6H PRN IVP Nausea & Vomiting 07/25/16 20:00 08/24/16 19:59 Polyethylene Glycol (Miralax) 17 gm HSPRN PRN ORAL Constipation 07/25/16 20:00 08/24/16 19:59 Warfarin Sodium (Coumadin per pharmacy) 1 ea DAILY PRN MISC Per rx protocol 07/26/16 17:15 08/25/16 17:14 Zolpidem Tartrate (Ambien) 5 mg HSPRN PRN ORAL Insomnia 07/25/16 20:00 08/24/16 19:59 STEVENSON HADDAD M.D. Aug 01, 2016 09:18
--- NOTE | 2016-08-01 10:44 | General Progress Note ---
Assessment/Plan Assessment/Plan ASSESSMENT: # Acute thrombosis of common femoral and supericial femoral vein of left lower extremity - on just coumadin, inr is therapeutic # Anemia is 2/2 chronic disease # Leukocytosis is mild is likely 2/2 reactice process # Left leg pain 2/2 DVT # Coagulopathy 2/2 clot # Tachycardia - consistent with DVT RECS: - Continue coumadin - Goal INR 2-3 - Have discontinued heparin gtt - Appreciate cards recs - Does not require a hypercoag w/u given patient's age, she is >50 - Anemia w/u has been reviewed, does not require iron - Monitor closely and counciled regarding potential for DVT - Appreciate consult! Continue followup Subjective Constitutional: Reports: no symptoms HEENT: Reports: no symptoms Cardiovascular: Reports: no symptoms Respiratory: Reports: no symptoms Gastrointestinal/Abdominal: Reports: no symptoms Genitourinary: Reports: no symptoms Neurologic/Psychiatric: Reports: no symptoms Endocrine: Reports: no symptoms Hematologic/Lymphatic: Reports: anemia Allergies: Coded Allergies: No Known Allergies (Unverified , 02/24/14) Subjective no events overnight, no fevers or chills, no night sweats Objective Last 24 Hour Vital Signs Date Time Temp Pulse Resp B/P Pulse Ox O2 Delivery O2 Flow Rate FiO2 08/01/16 08:00 97.7 88 18 140/83 96 Room Air 08/01/16 00:00 97.8 82 16 132/78 96 Room Air 07/31/16 20:00 97.9 88 19 135/73 95 Room Air 07/31/16 16:00 98.1 93 20 144/72 93 Room Air 07/31/16 12:00 98.2 77 18 124/69 77 Room Air Intake and Output 07/31/16 08/01/16 19:00 07:00 Intake Total 536 ml 27 ml Balance 536 ml 27 ml Intake Oral 320 ml IV Total 216 ml 27 ml # Voids 1 Laboratory Tests 07/31/16 15:30: Activated Partial Thromboplast Time 93H 08/01/16 04:00: Activated Partial Thromboplast Time 142H, Prothrombin Time 23.9H, Prothromb Time International Ratio 2.3H Height (Feet): 5 Height (Inches): 7.00 Weight (Pounds): 195 General Appearance: no apparent distress EENT: TMs normal Cardiovascular: regular rhythm Respiratory/Chest: normal breath sounds Abdomen: no organomegaly Extremities: non-tender Edema: no edema noted Leg (L), no edema noted Leg (R) Edema: mild edema Neurologic: alert Skin: warm/dry Bridger Robbins Aug 01, 2016 10:44
[2016-08-01 12:00] VITALS: BP 154/96
[2016-08-01] MEDS ORDERED: COUMADIN4 MG ORAL (15:21)
--- NOTE | 2016-08-01 15:29 | Pulmonology Progress Note ---
Assessment/Plan Problems: (1) Diabetes mellitus (2) DVT (deep venous thrombosis) Assessment/Plan continue the same INR, ptt daily, pharmacy to adjust meds. dc home with coumadin pt needs her INR check initially twice a week then weekly Subjective ROS Limited/Unobtainable: No Allergies: Coded Allergies: No Known Allergies (Unverified , 02/24/14) Objective Last 24 Hour Vital Signs Date Time Temp Pulse Resp B/P Pulse Ox O2 Delivery O2 Flow Rate FiO2 08/01/16 12:00 97.4 50 18 154/96 98 Room Air 08/01/16 08:00 97.7 88 18 140/83 96 Room Air 08/01/16 00:00 97.8 82 16 132/78 96 Room Air 07/31/16 20:00 97.9 88 19 135/73 95 Room Air 07/31/16 16:00 98.1 93 20 144/72 93 Room Air Intake and Output 07/31/16 08/01/16 19:00 07:00 Intake Total 536 ml 27 ml Balance 536 ml 27 ml Intake Oral 320 ml IV Total 216 ml 27 ml # Voids 1 Objective General Appearance: WD/WN, no apparent distress Lines, tubes and drains: peripheral HEENT: normocephalic, atraumatic Neck: non-tender, normal alignment Respiratory/Chest: chest wall non-tender, lungs clear Cardiovascular/Chest: normal peripheral pulses, normal rate Abdomen: normal bowel sounds, non tender Extremities: normal range of motion, non-tender Neurologic: civil cadd technician II-XII grossly normal, no motor/sensory deficits Laboratory Tests 07/31/16 15:30: Activated Partial Thromboplast Time 93H 08/01/16 04:00: Activated Partial Thromboplast Time 142H, Prothrombin Time 23.9H, Prothromb Time International Ratio 2.3H Current Medications Medications (Trade) Dose Ordered Sig/Day Route PRN Reason Start Time Stop Time Status Last Admin Dose Admin Acetaminophen (Tylenol) 650 mg Q4H PRN ORAL fever 07/25/16 20:00 08/24/16 19:59 07/28/16 20:17 Al Hydroxide/Mg Hydroxide (Mylanta II) 30 ml Q6H PRN ORAL dyspepsia 07/25/16 20:00 08/24/16 19:59 08/01/16 03:01 Dextrose (Dextrose 50%) STAT PRN IV Hypoglycemia 07/25/16 20:00 08/24/16 19:59 Guaifenesin/ Dextromethorphan (Robitussin DM) 10 ml Q4H PRN ORAL For Cough 07/28/16 21:00 08/27/16 20:59 Lorazepam (Ativan 2mg/ml 1ml) 0.5 mg Q4H PRN IV For Anxiety 07/25/16 20:00 08/01/16 19:59 Morphine Sulfate (Morphine Sulfate) 1 mg Q4H PRN IVP For Pain 4-07/25/16 20:00 08/01/16 19:59 Ondansetron HCl (Zofran) 4 mg Q6H PRN IVP Nausea & Vomiting 07/25/16 20:00 08/24/16 19:59 Polyethylene Glycol (Miralax) 17 gm HSPRN PRN ORAL Constipation 07/25/16 20:00 08/24/16 19:59 Warfarin Sodium (Coumadin per pharmacy) 1 ea DAILY PRN MISC Per rx protocol 07/26/16 17:15 08/25/16 17:14 Warfarin Sodium (Coumadin) 2 mg COUMADIN ONCE ORAL 08/01/16 17:00 08/01/16 17:01 Warfarin Sodium (Coumadin) 2.5 mg COUMADIN ONCE ORAL 08/01/16 17:00 08/01/16 17:01 Zolpidem Tartrate (Ambien) 5 mg HSPRN PRN ORAL Insomnia 07/25/16 20:00 08/24/16 19:59 DANYA RIVERA Aug 01, 2016 15:29
[2016-08-01 16:00] VITALS: BP 131/87
[2016-08-01] MEDS ORDERED: Warfarin Sodium 2mg ORAL ONE (17:00)
[2016-08-01] MEDS ORDERED: Warfarin Sodium 2.5mg ORAL ONE (17:00)
--- NOTE | 2016-08-02 19:38 | Discharge Summary ---
Discharge Summary Hospital Course Date of Admission Jul 25, 2016 at 17:07 Date of Discharge Aug 01, 2016 at 18:00 Admitting Diagnosis DVT HPI Bette Barba is a 61 year old female who was admitted on Jul 25, 2016 at 17:07 for Deep Vein Thrombosis Hospital Course [id number]. Discharge Discharge Disposition Patient was discharged to Home (01) Discharge Diagnoses: Pratima Nicholas NP Aug 02, 2016 19:38
--- NOTE | 2016-08-03 01:08 | Discharge Summary 2 SIG ---
DATE OF ADMISSION: 07/25/2016 DATE OF DISCHARGE: 08/01/2016 CONSULTANTS: 1. Bridger Robbins M.D. 2. Dave Caldwell M.D. 3. Naye Harris M.D. 4. Silvana Johnson M.D. BRIEF HOSPITAL COURSE: The patient is a 61-year-old female with history of DVT, presented to the ER complaining of left leg pain for two days. Left thigh and leg is swollen and the pain was located on the left calf. On evaluation at ED venous duplex showed acute thrombus on the left common femoral, superficial femoral, popliteal, and tibial segments. Dr. Robbins was consulted. The patient was started on heparin drip and Coumadin. Dr. Caldwell was also consulted. The patient was found to have leukocytosis, however based on exam and based on physical examination and laboratories, there is no evidence of active infection. Urine culture showed gram-negative eric contamination. Ultrasound of the abdomen showed cholelithiasis, negative for dilated ducts. Dr. Harris was also consulted for evaluation of renal failure. On admission, creatinine was 1.1 and increased to 1.7. Acute renal failure was secondary to unstable hemodynamics and acute tubular necrosis. Electrolytes were repleted and advised to avoid NSAID. She was seen by Dr. Johnson for irritation and moisture on the pannus. Recommended to keep clean and dry with NS and zinc oxide t.i.d. three times a day. INR therapeutic. Heparin was discontinued. INR goal 2 to 3. The patient was discharged home to continue Coumadin with outpatient INR monitoring. FINAL DIAGNOSES: 1. Acute deep venous thrombosis on the left leg. 2. Anemia secondary to chronic disease. 3. Leukocytosis, likely reactive process. 4. Coagulopathy. 5. Diabetes mellitus. 6. Acute renal failure with ATN. Rosetta Cabrera M.D. I have been assigned to dictate discharge summary on this account and I was not involved in the patient's management. Pratiam Nicholas N.P. DR: GROVER JOB#: [id number] CC: BERNA
== END 2016-08-01 18:00 | disposition home or self-care (01) | DRG 197 ==
LOC: EMR 16:45 → 4W 17:07 → EDBEDREQ 19:14
DX: I82.442 Acute embolism and thrombosis of left tibial vein (principal); N17.0 Acute kidney failure with tubular necrosis; D68.9 Coagulation defect, unspecified; I10 Essential (primary) hypertension; E11.9 Type 2 diabetes mellitus without complications; D63.8 Anemia in other chronic diseases classified elsewhere; I82.432 Acute embolism and thrombosis of left popliteal vein; I82.412 Acute embolism and thrombosis of left femoral vein; I50.9 Heart failure, unspecified; Z86.718 Personal history of other venous thrombosis and embolism; Z86.711 Personal history of pulmonary embolism; I25.2 Old myocardial infarction; I25.5 Ischemic cardiomyopathy; Z79.01 Long term (current) use of anticoagulants; R00.0 Tachycardia, unspecified; K80.20 Calculus of gallbladder without cholecystitis without obstruction; L98.9 Disorder of the skin and subcutaneous tissue, unspecified
CPT/HCPCS: 36415; 76700; 80048; 80053; 80061; 81001; 82043; 82044; 82570; 84300; 85025; 85610; 85730; 87040; 87086; 89050; 93005; 93971